=== PATIENT | female | born 1950 | race Caucasian/White ===

== ENCOUNTER 2017-01-25 16:42 | Inpatient (IN) | payer MEDICARE, BC ==
[~2017-01-25] VITALS: Ht 167.6 cm; Wt 114.2 kg
[2017-01-25 17:07] VITALS: BP 166/70; PULSE 110; RESP 20; TEMP 100; O2SAT 96
[2017-01-25 17:33] VITALS: BP 147/67; PULSE 102; RESP 18; TEMP 99.9; O2SAT 98
[2017-01-25] MEDS ORDERED: VICT18IN SQ (17:33)
[2017-01-25] MEDS ORDERED: GLIP5TAB8 PO (17:33)
[2017-01-25] MEDS ORDERED: TELM40 PO (17:33)
--- NOTE | 2017-01-25 17:40 | PD ---
HPI Chief Complaint: GI Complaint Time Seen by Provider: 17:40 Travel History International Travel<30 days: No Contact w/Intl Traveler<30days: No Traveled to known affect area: No History of Present Illness HPI 66-year-old female came to the emergency room with history of vomiting for past 3 days. Now she has started with some diarrhea as well but as per her the vomiting is the worst. She has generalized weakness with continuous nausea. Vital signs are stable except for temperature in triage was 100. Patient has been complaining of chills. Earlier in the week she had some associated dysuria symptoms which patient says now it is better. No history of sick contacts. Patient did a course of antibiotic for bronchitis 2 weeks ago. It was ciprofloxacin. She was also given a 3 day course of steroid which she finished taking earlier this week. Patient is a diabetic and her blood sugar in triage was more than 500. Patient is awake and answering questions appropriately. No aggravating or relieving factors identified. PFSH Past Medical History Narrative Medical List of her past medical, surgical, social and family history is reviewed from the nursing note. Cardiovascular Problems: Yes Diabetes: Yes Patient Takes Glucophage: Yes Diminished Hearing: No Hypertension: Yes Medical other: Yes Tetanus Vaccination: < 5 Years Influenza Vaccination: Yes Menopausal: Yes : 4 Para: 2 Past Surgical History Appendectomy: Yes Section: Yes (X2) Cholecystectomy: Yes Other Surgery: Yes (MELANOMA BACK) Social History Alcohol Use: No Tobacco Use: No Substance Use: No Allergies-Medications (Allergen,Severity, Reaction): Coded Allergies: No Known Allergies (Unverified , 01/25/17) Comments No known drug allergies. Reported Meds & Prescriptions Reported Meds & Active Scripts Active Reported Medrol Dosepak (Methylprednisolone) 4 Mg Dspk 4 Mg PO DIRECTED Per Pharmacist direction Victoza Inj (Liraglutide Inj) 18 Mg/3 Ml Pen 1.2 Mg SQ DAILY Micardis (Telmisartan) 40 Mg Tab 40 Mg PO DAILY Glipizide 5 Mg Tab 5 Mg PO DAILY Take 30 minutes before a meal Narrative Medication List of her home medications reviewed from the nursing note. Review of Systems Except as stated in HPI: all other systems reviewed are Neg Gastrointestinal: Positive: Nausea, Vomiting, Diarrhea Physical Exam Narrative GENERAL: Awake, alert, morbidly obese, moderate distress SKIN: Focused skin assessment warm/dry. HEAD: Atraumatic. Normocephalic. EYES: Pupils equal and round. No scleral icterus. No injection or drainage. ENT: No nasal bleeding or discharge. Mucous membranes pink and moist. NECK: Trachea midline. No JVD. CARDIOVASCULAR: Regular rate and rhythm. No murmur appreciated. RESPIRATORY: No accessory muscle use. Clear to auscultation. Breath sounds equal bilaterally. GASTROINTESTINAL: Abdomen soft, non-tender, nondistended. Hepatic and splenic margins not palpable. MUSCULOSKELETAL: No obvious deformities. No clubbing. No cyanosis. No edema. NEUROLOGICAL: Awake and alert. No obvious cranial nerve deficits. Motor grossly within normal limits. Normal speech. PSYCHIATRIC: Appropriate mood and affect; insight and judgment normal. Data Data Last Documented VS Vital Signs Date Time Temp Pulse Resp B/P (MAP) Pulse Ox O2 Delivery O2 Flow Rate FiO2 01/25/17 23:51 100.3 01/25/17 23:03 90 18 100 Nasal Cannula 2.00 Orders Orders Complete Blood Count With Diff (01/25/17 17:12) Comprehensive Metabolic Panel (01/25/17 17:12) Urinalysis - C+S If Indicated (01/25/17 17:12) Iv Access Insert/Monitor (01/25/17 17:12) Lipase (01/25/17 17:12) Sodium Chlor 0.9% 1000 Ml Inj (Ns 1000 M (01/25/17 18:00) Lactic Acid (01/25/17 17:52) Blood Culture (01/25/17 17:52) ^ Straight Catheter (01/25/17 17:52) Insulin Human Regular Inj (Novolin R Inj (01/25/17 18:00) Piperacil-Tazo 4.5 Gm Premix (Zosyn 4.5 (01/25/17 18:15) Vancomycin Inj (Vancomycin Inj) (01/25/17 18:15) C Diff Toxin Pcr (01/25/17 18:27) Chest, Single Ap (01/25/17 ) Urine Culture (01/25/17 18:10) Admit Order (Ed Use Only) (01/26/17 02:09) Labs Laboratory Tests Test 01/25/17 17:00 01/25/17 18:10 White Blood Count 18.2 TH/MM3 Red Blood Count 4.11 MIL/MM3 Hemoglobin 12.3 GM/DL Hematocrit 36.3 % Mean Corpuscular Volume 88.3 FL Mean Corpuscular Hemoglobin 30.0 PG Mean Corpuscular Hemoglobin Concent 33.9 % Red Cell Distribution Width 12.6 % Platelet Count 166 TH/MM3 Mean Platelet Volume 9.0 FL Neutrophils (%) (Auto) 86.0 % Lymphocytes (%) (Auto) 3.7 % Monocytes (%) (Auto) 10.1 % Eosinophils (%) (Auto) 0.1 % Basophils (%) (Auto) 0.1 % Neutrophils # (Auto) 15.7 TH/MM3 Lymphocytes # (Auto) 0.7 TH/MM3 Monocytes # (Auto) 1.8 TH/MM3 Eosinophils # (Auto) 0.0 TH/MM3 Basophils # (Auto) 0.0 TH/MM3 CBC Comment DIFF FINAL Differential Comment Blood Urea Nitrogen 44 MG/DL Creatinine 2.30 MG/DL Random Glucose 444 MG/DL Total Protein 6.9 GM/DL Albumin 2.6 GM/DL Calcium Level 8.2 MG/DL Alkaline Phosphatase 67 U/L Aspartate Amino Transf (AST/SGOT) 7 U/L Alanine Aminotransferase (ALT/SGPT) 10 U/L Total Bilirubin 1.3 MG/DL Sodium Level 134 MEQ/L Potassium Level 4.2 MEQ/L Chloride Level 99 MEQ/L Carbon Dioxide Level 23.6 MEQ/L Anion Gap 11 MEQ/L Estimat Glomerular Filtration Rate 21 ML/MIN Lipase 133 U/L Urine Color YELLOW Urine Turbidity HAZY Urine pH 5.5 Urine Specific [place] 1.016 Urine Protein 100 mg/dL Urine Glucose (UA) 1000 mg/dL Urine Ketones TRACE mg/dL Urine Occult Blood MOD Urine Nitrite POS Urine Bilirubin NEG Urine Urobilinogen LESS THAN 2.0 MG/DL Urine Leukocyte Esterase LARGE Urine RBC 5 /hpf Urine WBC /hpf Urine WBC Clumps RARE Urine Squamous Epithelial Cells 1 /hpf Urine Amorphous Sediment RARE Urine Bacteria MANY /hpf Urine Mucus FEW /lpf Microscopic Urinalysis Comment CULTURE INDICATED Lactic Acid Level 2.0 mmol/L [facility] Medical Decision Making Medical Screen Exam Complete: Yes Emergency Medical Condition: Yes Medical Record Reviewed: Yes Differential Diagnosis DKA, dehydration, UTI, pneumonia, C. difficile colitis Narrative Course 6:25 PM patient is getting IV fluid total of 2 L of bolus. Repeat blood sugar after 1 L was 402. I have ordered 10 units of insulin subcutaneous as well. Her white blood cell count is 18,000 with a left shift. Due to the unknown source of infection I have started her on Zosyn and vancomycin. Awaiting for the BMP results and UA. Case will be signed over to the oncoming ER physician. Critical Care Narrative Aggregate critical care time was 30 minutes. Time to perform other separately billable procedures was not included in the critical care time. My time did not include minutes spent treating any other patients simultaneously or on activities that did not directly contribute to the patient's treatment. The services I provided to this patient were to treat and/or prevent clinically significant deterioration that could result in: sepsis, sepsis protocol, DKA, fluid resuscitation I provided critical care services requiring my management, as noted below: Chart data review, documentation time, medication orders and management, vital sign assessments/reviewing monitor data, ordering and reviewing lab tests, ordering and interpreting/reviewing x-rays and diagnostic studies, care of the patient and discussion of the patient with the admitting physicians. Procedures EKG Prior to Arrival: No Diagnosis Primary Impression: Sepsis Qualified Codes: A41.9 - Sepsis, unspecified organism Additional Impressions: Hyperglycemia Dehydration Admitting Information Admitting Physician Requests: Madeline Gatica MD Jan 25, 2017 17:40
[2017-01-25] MEDS ORDERED: MEDR4PAK PO (17:48)
[2017-01-25] MEDS ORDERED: INSULIN HUMAN REGULAR 1,000 UNITS/10 ML VIAL SQ ONE (18:00)
[2017-01-25] MEDS ORDERED: SODIUM CHLOR 0.9% 1000 ML INJ 1,000 ML IV ONE (18:00)
[2017-01-25 18:07] LABS: AUTOMATED NEUTROPHIL # 15.7 TH/MM3 (1.8-7.7); BASOPHIL % 0.1 % (0.0-2.0); EOSINOPHIL % 0.1 % (0.0-4.0); HEMATOCRIT 36.3 % (35.0-46.0); HEMO FLAGS DIFF FINAL; LYMPH % 3.7 % (9.0-44.0); LYMPHOCYTE # 0.7 TH/MM3 (1.0-4.8); MEAN CELL VOLUME 88.3 FL (80.0-100.0); MEAN CORPUSCULAR HGB CONC 33.9 % (32.0-36.0); MONO % 10.1 % (0.0-8.0); PLATELET COUNT 166 TH/MM3 (150-450); RED BLOOD COUNT 4.11 MIL/MM3 (4.00-5.30); RED CELL DISTRIBUTION WIDTH 12.6 % (11.6-17.2); WHITE BLOOD COUNT 18.2 TH/MM3 (4.0-11.0)
[2017-01-25] MEDS ORDERED: VANCOMYCIN INJ 1,000 MG in SODIUM CHLOR 0.9% 250 ML INJ 250 ML IV ONE (18:15)
[2017-01-25] MEDS ORDERED: PIPERACIL-TAZO 4.5 GM PREMIX 100 ML IV ONE (18:15)
[2017-01-25 18:29] LABS: ANION GAP 11 MEQ/L (5-15)
[2017-01-25 18:39] LABS: ALKALINE PHOSPHATASE 67 U/L (45-117); ALT (GPT) 10 U/L (10-53); AST (GOT) 7 U/L (15-37); BICARBONATE 23.6 MEQ/L (21.0-32.0); BLOOD UREA NITROGEN 44 MG/DL (7-18); CHLORIDE 99 MEQ/L (98-107); GLOMERULAR FILTRATION RATE 21 ML/MIN (>89); POTASSIUM 4.2 MEQ/L (3.5-5.1); SODIUM (NA) 134 MEQ/L (136-145); TOTAL BILIRUBIN ADULT 1.3 MG/DL (0.2-1.0)
[2017-01-25 19:03] LABS: BACTERIA, URINE MANY /hpf; BLOOD, URINE MOD (NEG); COMMENT (UR) CULTURE INDICATED; CULTURE IF INDICATED CULTURE INDICATED; GLUCOSE,URINE 1000 mg/dL (NEG); KETONE, URINE TRACE mg/dL (NEG); MUCUS URINE FEW /lpf (OCC); NITRITE,URINE POS (NEG); PH, URINE 5.5 (5.0-8.5); SQUAMOUS EPITHELIAL CELL URINE 1 /hpf (0-5); URINE COLOR YELLOW (YELLW/STRAW)
--- NOTE | 2017-01-25 19:58 | RADRPT ---
EXAM DATE/TIME: 01/25/2017 19:14 [place] COMPARISON: No previous studies available for comparison. INDICATIONS : Fever. MEDICAL HISTORY : Hypertension. Diabetes mellitus type II. SURGICAL HISTORY : None. ENCOUNTER: Initial ACUITY: 1 day PAIN SCORE: 0/10 LOCATION: Bilateral chest FINDINGS: A single view of the chest demonstrates the lungs to be symmetrically aerated without evidence of mas s, infiltrate or effusion. The cardiomediastinal contours are unremarkable. Osseous structures are intact. CONCLUSION: No acute disease. Ezequiel Quiñones MD on January 25, 2017 at 19:56 Board Certified Radiologist. This report was verified electronically.
[2017-01-25 20:00] VITALS: BP 109/59; PULSE 101; RESP 20; TEMP 99; O2SAT 98
[2017-01-25 23:03] VITALS: BP 114/61; PULSE 90; RESP 18; O2SAT 100
[2017-01-25 23:51] VITALS: TEMP 100.3
[2017-01-26] VITALS (7 sets, daily range): BP systolic 109–140; BP diastolic 56–69; PULSE 79–101; RESP 16–22; TEMP 98.3–100.7; O2SAT 93–99
--- NOTE | 2017-01-26 01:59 | PD ---
Physical Exam Narrative Patient was seen by ED physician and signed out to me. Data Data Last Documented VS Vital Signs Date Time Temp Pulse Resp B/P (MAP) Pulse Ox O2 Delivery O2 Flow Rate FiO2 01/25/17 23:51 100.3 01/25/17 23:03 90 18 100 Nasal Cannula 2.00 Orders Orders Complete Blood Count With Diff (01/25/17 17:12) Comprehensive Metabolic Panel (01/25/17 17:12) Urinalysis - C+S If Indicated (01/25/17 17:12) Iv Access Insert/Monitor (01/25/17 17:12) Lipase (01/25/17 17:12) Sodium Chlor 0.9% 1000 Ml Inj (Ns 1000 M (01/25/17 18:00) Lactic Acid (01/25/17 17:52) Blood Culture (01/25/17 17:52) ^ Straight Catheter (01/25/17 17:52) Insulin Human Regular Inj (Novolin R Inj (01/25/17 18:00) Piperacil-Tazo 4.5 Gm Premix (Zosyn 4.5 (01/25/17 18:15) Vancomycin Inj (Vancomycin Inj) (01/25/17 18:15) C Diff Toxin Pcr (01/25/17 18:27) Chest, Single Ap (01/25/17 ) Urine Culture (01/25/17 18:10) Labs Laboratory Tests Test 01/25/17 17:00 01/25/17 18:10 White Blood Count 18.2 TH/MM3 Red Blood Count 4.11 MIL/MM3 Hemoglobin 12.3 GM/DL Hematocrit 36.3 % Mean Corpuscular Volume 88.3 FL Mean Corpuscular Hemoglobin 30.0 PG Mean Corpuscular Hemoglobin Concent 33.9 % Red Cell Distribution Width 12.6 % Platelet Count 166 TH/MM3 Mean Platelet Volume 9.0 FL Neutrophils (%) (Auto) 86.0 % Lymphocytes (%) (Auto) 3.7 % Monocytes (%) (Auto) 10.1 % Eosinophils (%) (Auto) 0.1 % Basophils (%) (Auto) 0.1 % Neutrophils # (Auto) 15.7 TH/MM3 Lymphocytes # (Auto) 0.7 TH/MM3 Monocytes # (Auto) 1.8 TH/MM3 Eosinophils # (Auto) 0.0 TH/MM3 Basophils # (Auto) 0.0 TH/MM3 CBC Comment DIFF FINAL Differential Comment Blood Urea Nitrogen 44 MG/DL Creatinine 2.30 MG/DL Random Glucose 444 MG/DL Total Protein 6.9 GM/DL Albumin 2.6 GM/DL Calcium Level 8.2 MG/DL Alkaline Phosphatase 67 U/L Aspartate Amino Transf (AST/SGOT) 7 U/L Alanine Aminotransferase (ALT/SGPT) 10 U/L Total Bilirubin 1.3 MG/DL Sodium Level 134 MEQ/L Potassium Level 4.2 MEQ/L Chloride Level 99 MEQ/L Carbon Dioxide Level 23.6 MEQ/L Anion Gap 11 MEQ/L Estimat Glomerular Filtration Rate 21 ML/MIN Lipase 133 U/L Urine Color YELLOW Urine Turbidity HAZY Urine pH 5.5 Urine Specific [place] 1.016 Urine Protein 100 mg/dL Urine Glucose (UA) 1000 mg/dL Urine Ketones TRACE mg/dL Urine Occult Blood MOD Urine Nitrite POS Urine Bilirubin NEG Urine Urobilinogen LESS THAN 2.0 MG/DL Urine Leukocyte Esterase LARGE Urine RBC 5 /hpf Urine WBC /hpf Urine WBC Clumps RARE Urine Squamous Epithelial Cells 1 /hpf Urine Amorphous Sediment RARE Urine Bacteria MANY /hpf Urine Mucus FEW /lpf Microscopic Urinalysis Comment CULTURE INDICATED Lactic Acid Level 2.0 mmol/L MDM Supervised Visit with KALEIGH: No Interpretation(s) Last Impressions Chest X-Ray 01/25/17 0000 Signed Impressions: Service Date/Time: Wednesday, January 25, 2017 19:14 - CONCLUSION: No acute disease. Ezequiel Quiñones MD 1:53 AM. CBC WBC 18.2. 86 neutrophil. Sodium 134. BUN 44. Creatinine 2.3. GFR 21. Glucose 444. Lactic acid 2.0. Calcium 8.2. Total bili 1.3. UA positive WBC and bacteria. Narrative Course Patient was given vancomycin, Zosyn, Novolin and normal saline solution. Diagnosis Primary Impression: Sepsis Qualified Codes: A41.9 - Sepsis, unspecified organism Additional Impressions: Hyperglycemia Dehydration UTI (urinary tract infection) Qualified Codes: N30.00 - Acute cystitis without hematuria Daryl Barber MD Jan 26, 2017 01:59
[2017-01-26] MEDS ORDERED: DEXTROSE 50% IN WATER 50 ML VIAL(D50) IV PUSH PRN (02:15)
[2017-01-26] MEDS ORDERED: GLUCAGON 1 MG/ML VIAL OTHER PRN (02:15)
[2017-01-26] MEDS ORDERED: NALOXONE HCL 0.4 MG/ML AMP IV PUSH PRN (02:15)
[2017-01-26] MEDS ORDERED: SODIUM CHLORIDE 0.9% FLUSH 10 ML FLUSH IV FLUSH PRN (02:15)
[2017-01-26] MEDS: SODIUM CHLOR 0.9% 1000 ML INJ 1,000 ML IV SCH ×2 (02:29→17:18)
[2017-01-26] MEDS ORDERED: metroNIDAZOLE 500 MG TAB PO SCH (08:00)
[2017-01-26] MEDS: INSULIN ASPART SUPPLEMENTAL SCALE SQ SCH ×4 (08:40→20:45)
[2017-01-26] MEDS: SODIUM CHLORIDE 0.9% FLUSH 10 ML FLUSH IV FLUSH SCH ×2 (08:41→20:46)
[2017-01-26] MEDS: INSULIN DETEMIR 100 UNITS/ML VIAL SQ SCH ×2 (08:45→20:42)
[2017-01-26] MEDS ORDERED: CIPROFLOXACIN 400 MG PREMIX 200 ML IV SCH (09:00)
--- NOTE | 2017-01-26 09:12 | HHI.HP ---
HPI Service [facility] Primary Care Physician Unknown Admission Diagnosis sepsis. UTI. Hyperglycemia. Diagnoses: Chief Complaint: Nausea and vomiting Travel History International Travel<30 Days: No Contact w/Intl Traveler <30 Da: No Traveled to Known Affected Are: No History of Present Illness The patient is a 66-year-old female with a past medical history of diabetes and chronic kidney disease who is presenting to the hospital with nausea, vomiting and diarrhea. The patient says she was feeling fine on Monday. She had a fish sandwich for dinner and then at approximately 2 AM she woke up feeling feverish. She said she was severely cold and had chills. She did not have a thermometer so did not check a temperature. On Monday morning she started vomiting bile. She said that everything she ate or drank would come up. This has been ongoing since Monday. She said she has had generalized weakness since the vomiting started. She has been having a hard time ambulating. She said that because she has not been eating, drinking or feeling well she has missed some of her Victoza injections. She says she started to have diarrhea about 2 days ago. She describes the diarrhea as watery but not bad. She denies any cramps associated with it. She says she has been having about 2 bowel movements a day. She also mentions that her [id number]-krg had the same fish sandwich on Monday night and did not develop any similar symptoms. She mentions recently she had bad bronchitis and was on Cipro for 10 days. The Cipro did not work so she was given steroids. She completed about 3-1/2 days of steroids and she said her bronchitis is currently gone. Review of Systems Except as stated in HPI: all other systems reviewed are Neg Past Family Social History Past Medical History DM CKD stage III s/t NSAID use Melanoma of back s/p surgery Past Surgical History Cholecystectomy C/s x 2 Allergies: Coded Allergies: No Known Allergies (Unverified , 01/25/17) Active Ordered Medications Current Medications Medications (Trade) Dose Ordered Sig/Issa Route Start Time Stop Time Status Last Admin Sodium Chloride 1,000 ml @ 75 mls/hr [id number] IV 01/26/17 02:13 01/26/17 02:29 (NS Flush) 2 ml UNSCH PRN IV FLUSH 01/26/17 02:15 (NS Flush) 2 ml BID IV FLUSH 01/26/17 09:00 (Narcan Inj) 0.4 mg UNSCH PRN IV PUSH 01/26/17 02:15 (D50w (Vial) Inj) 50 ml UNSCH PRN IV PUSH 01/26/17 02:15 (Glucagon Inj) 1 mg UNSCH PRN OTHER 01/26/17 02:15 (NovoLOG SUPPLEMENTAL SCALE) 1 ACHS SLIDING SCALE SQ 01/26/17 08:00 01/26/17 08:40 Ceftriaxone Sodium 1000 mg/ Sodium Chloride 100 ml @ 200 mls/hr Q24H IV 01/26/17 08:45 UNV (Levemir Inj) 20 units HS SQ 01/26/17 08:45 UNV Family History Father passed of lung cancer Mother had carcinoid disease Social History The pt does not smoke. She drinks two margaritas a year. Physical Exam Vital Signs Vital Signs Date Time Temp Pulse Resp B/P (MAP) Pulse Ox O2 Delivery O2 Flow Rate FiO2 01/26/17 08:08 99.0 86 16 109/57 (74) 97 01/26/17 04:19 99.5 101 19 133/69 (90) 93 01/26/17 04:00 01/25/17 23:51 100.3 01/25/17 23:03 90 18 114/61 (78) 100 Nasal Cannula 2.00 01/25/17 20:00 99.0 101 20 109/59 (76) 98 Nasal Cannula 01/25/17 17:33 99.9 102 18 147/67 (93) 98 Room Air 01/25/17 17:26 18 01/25/17 17:07 100.0 110 20 166/70 (102) 96 Physical Exam GENERAL: Resting comfortably. SKIN: Focused skin assessment warm/dry. HEAD: Atraumatic. Normocephalic. EYES: Pupils equal and round. No scleral icterus. No injection or drainage. ENT: No nasal bleeding or discharge. Mucous membranes pink and moist. NECK: Trachea midline. No JVD. CARDIOVASCULAR: Regular rate and rhythm. No murmur appreciated. RESPIRATORY: No accessory muscle use. Clear to auscultation. Breath sounds equal bilaterally. GASTROINTESTINAL: Abdomen soft, non-tender, nondistended. Hepatic and splenic margins not palpable. MUSCULOSKELETAL: No obvious deformities. No clubbing. No cyanosis. No edema. NEUROLOGICAL: Awake and alert. No obvious cranial nerve deficits. Motor grossly within normal limits. Normal speech. PSYCHIATRIC: Appropriate mood and affect; insight and judgment normal. Laboratory Laboratory Tests Test 01/25/17 17:00 01/25/17 18:10 White Blood Count 18.2 Red Blood Count 4.11 Hemoglobin 12.3 Hematocrit 36.3 Mean Corpuscular Volume 88.3 Mean Corpuscular Hemoglobin 30.0 Mean Corpuscular Hemoglobin Concent 33.9 Red Cell Distribution Width 12.6 Platelet Count 166 Mean Platelet Volume 9.0 Neutrophils (%) (Auto) 86.0 Lymphocytes (%) (Auto) 3.7 Monocytes (%) (Auto) 10.1 Eosinophils (%) (Auto) 0.1 Basophils (%) (Auto) 0.1 Neutrophils # (Auto) 15.7 Lymphocytes # (Auto) 0.7 Monocytes # (Auto) 1.8 Eosinophils # (Auto) 0.0 Basophils # (Auto) 0.0 CBC Comment DIFF FINAL Differential Comment Blood Urea Nitrogen 44 Creatinine 2.30 Random Glucose 444 Total Protein 6.9 Albumin 2.6 Calcium Level 8.2 Alkaline Phosphatase 67 Aspartate Amino Transf (AST/SGOT) 7 Alanine Aminotransferase (ALT/SGPT) 10 Total Bilirubin 1.3 Sodium Level 134 Potassium Level 4.2 Chloride Level 99 Carbon Dioxide Level 23.6 Anion Gap 11 Estimat Glomerular Filtration Rate 21 Lipase 133 Urine Color YELLOW Urine Turbidity HAZY Urine pH 5.5 Urine Specific [place] 1.016 Urine Protein 100 Urine Glucose (UA) 1000 Urine Ketones TRACE Urine Occult Blood MOD Urine Nitrite POS Urine Bilirubin NEG Urine Urobilinogen LESS THAN 2.0 Urine Leukocyte Esterase LARGE Urine RBC 5 Urine WBC Urine WBC Clumps RARE Urine Squamous Epithelial Cells 1 Urine Amorphous Sediment RARE Urine Bacteria MANY Urine Mucus FEW Microscopic Urinalysis Comment CULTURE INDICATED Lactic Acid Level 2.0 Date/Time Source Procedure Growth Status 01/25/17 18:10 Blood Peripheral Aerobic Blood Culture Pending Received 01/25/17 18:10 Blood Peripheral Anaerobic Blood Culture Pending Received 01/25/17 18:10 Urine Clean Catch Urine Culture Pending Received Result Diagram: 01/25/17 1700 01/25/17 1700 Imaging Last Impressions Chest X-Ray 01/25/17 0000 Signed Impressions: Service Date/Time: Wednesday, January 25, 2017 19:14 - CONCLUSION: No acute disease. MD Estevan Medina VTE Risk Assessment Estevan VTE Risk Assessment: Mod/High Risk (score >= 2) Caprini Risk Assessment Model Point Value = 1 Point Value = 2 Point Value = 3 Point Value = 5 Age 41-60 Minor surgery BMI > 25 kg/m2 Swollen legs Varicose veins or History of unexplained or recurrent spontaneous Oral contraceptives or hormone replacement Sepsis (< 1 month) Serious lung disease, including pneumonia (< 1 month) Abnormal pulmonary function Acute myocardial infarction Congestive heart failure (< 1 month) History of inflammatory bowel disease Medical patient at bed rest Age 61-74 Arthroscopic surgery Major open surgery (> 45 min) Laparoscopic surgery (> 45 min) Malignancy Confined to bed (> 72 hours) Immobilizing plaster cast Central venous access Age >= 75 History of VTE Family history of VTE Factor V Leiden Prothrombin [id number] Lupus anticoagulant Anticardiolipin antibodies Elevated serum homocysteine Heparin-induced thrombocytopenia Other congenital or acquired thrombophilia Stroke (< 1 month) Elective arthroplasty Hip, pelvis, or leg fracture Acute spinal cord injury (< 1 month) Prophylaxis Regimen Total Risk Factor Score Risk Level Prophylaxis Regimen 0-1 Low Early ambulation 2 Moderate Order ONE of the following: *Sequential Compression Device (SCD) *Heparin 5000 units SQ BID 3-4 Higher Order ONE of the following medications: *Heparin 5000 units SQ TID *Enoxaparin/Lovenox 40 mg SQ daily (WT < 150 kg, CrCl > 30 mL/min) *Enoxaparin/Lovenox 30 mg SQ daily (WT < 150 kg, CrCl > 10-29 mL/min) *Enoxaparin/Lovenox 30 mg SQ BID (WT < 150 kg, CrCl > 30 mL/min) AND/OR *Sequential Compression Device (SCD) 5 or more Highest Order ONE of the following medications: *Heparin 5000 units SQ TID (Preferred with Epidurals) *Enoxaparin/Lovenox 40 mg SQ daily (WT < 150 kg, CrCl > 30 mL/min) *Enoxaparin/Lovenox 30 mg SQ daily (WT < 150 kg, CrCl > 10-29 mL/min) *Enoxaparin/Lovenox 30 mg SQ BID (WT < 150 kg, CrCl > 30 mL/min) AND *Sequential Compression Device (SCD) Assessment and Plan Assessment and Plan Sepsis/ Gastroenteritis/ Dehydration The pt has been having severe nausea and vomiting for days prior to admission. More recently she developed diarrhea. She is currently holding down some food. She denies any abdominal pain. She did have a fish sandwich prior to the onset of symptoms. The patient likely has viral or bacterial gastroenteritis. - Continue supportive care including fluids and antiemetics as needed. - Continue IV ceftriaxone. - stool cultures and C diff PCR pending. - ADAT. DM Poorly controlled. Has missed several doses of Victoza s/t sickness. Glucose over 500 on admission. Anion gap not elevated. - IVFs. - Levemir 20 units daily. - ISS, diabetic diet. - Check a hemoglobin A1c. Generalized weakness S/t above. - PT. - check TSH, vitamin D and B12 levels. UTI UA indicative of infection. She previously had symptoms of a UTI, but not currently. - continue ceftriaxone and follow urine culture. Acute on chronic kidney disease Renal dysfunction is secondary to NSAID use. Exacerbated by dehydration as above. - IV fluids. - Avoid nephrotoxic agents. - Outpatient follow-up. PPx: Heparin Code Status Full Discussed Condition With Patient Physician Certification 2 Midnight Certification Type: Admission for Inpatient Services Order for Inpatient Services The services are ordered in accordance with Medicare regulations or non- Medicare payer requirements, as applicable. In the case of services not specified as inpatient-only, they are appropriately provided as inpatient services in accordance with the 2-midnight benchmark. Estimated LOS (days): 2 days is the estimated time the patient will need to remain in the hospital, assuming treatment plan goals are met and no additional complications. Post-Hospital Plan: Home Hilton Linda DO Jan 26, 2017 09:11
[2017-01-26] MEDS ORDERED: ACETAMINOPHEN/HYDROcodone 325 MG/5 MG TAB PO PRN (09:30)
[2017-01-26] MEDS ORDERED: cefTRIAXone INJ 1,000 MG in SODIUM CHLORIDE 0.9% INJ 100 ML IV SCH (11:00)
[2017-01-26] MEDS: PANTOPRAZOLE SOD 20 MG DELAYED RELEASE TAB PO SCH (13:12)
[2017-01-26] MEDS: HEPARIN SODIUM - SQ 10,000 UNITS/ML VIAL SQ SCH ×2 (13:12→20:42)
[2017-01-26] MEDS: PIPERACIL-TAZO 2.25 GM PREMIX 50 ML IV SCH ×2 (15:53→20:42)
[2017-01-26 16:34] LABS: AUTOMATED NEUTROPHIL # 11.6 TH/MM3 (1.8-7.7); BASOPHIL % 0.2 % (0.0-2.0); EOSINOPHIL # 0.2 TH/MM3 (0-0.4); EOSINOPHIL % 1.2 % (0.0-4.0); HEMATOCRIT 30.8 % (35.0-46.0); HEMO FLAGS DIFF FINAL; LYMPH % 9.3 % (9.0-44.0); LYMPHOCYTE # 1.4 TH/MM3 (1.0-4.8); MEAN CELL VOLUME 87.5 FL (80.0-100.0); MEAN CORPUSCULAR HEMOGLOBIN 29.5 PG (27.0-34.0); MEAN CORPUSCULAR HGB CONC 33.7 % (32.0-36.0); MONO % 11.3 % (0.0-8.0); PLATELET COUNT 156 TH/MM3 (150-450); RED BLOOD COUNT 3.52 MIL/MM3 (4.00-5.30); RED CELL DISTRIBUTION WIDTH 12.9 % (11.6-17.2); WHITE BLOOD COUNT 14.9 TH/MM3 (4.0-11.0)
[2017-01-26 17:04] LABS: ALKALINE PHOSPHATASE 58 U/L (45-117); ALT (GPT) 9 U/L (10-53); ANION GAP 7 MEQ/L (5-15); AST (GOT) 5 U/L (15-37); BICARBONATE 23.9 MEQ/L (21.0-32.0); BLOOD UREA NITROGEN 47 MG/DL (7-18); CHLORIDE 105 MEQ/L (98-107); GLOMERULAR FILTRATION RATE 24 ML/MIN (>89); MAGNESIUM 1.8 MG/DL (1.5-2.5); POTASSIUM 3.5 MEQ/L (3.5-5.1); SODIUM (NA) 136 MEQ/L (136-145); TOTAL BILIRUBIN ADULT 0.6 MG/DL (0.2-1.0)
[2017-01-26 22:07] LABS: HEMOGLOBIN A1a 1.6 %; HEMOGLOBIN A1b 2.4 %; HEMOGLOBIN Ao 79.2 %; HEMOGLOBIN LA1C 3.4 %
[2017-01-27] VITALS (9 sets, daily range): BP systolic 120–150; BP diastolic 56–69; PULSE 78–90; RESP 16–20; TEMP 97.5–99.6; O2SAT 95–97
[2017-01-27] MEDS: PIPERACIL-TAZO 2.25 GM PREMIX 50 ML IV SCH ×4 (02:59→21:00)
[2017-01-27] MEDS: SODIUM CHLOR 0.9% 1000 ML INJ 1,000 ML IV SCH ×2 (04:53→08:32)
[2017-01-27] MEDS: HEPARIN SODIUM - SQ 10,000 UNITS/ML VIAL SQ SCH ×3 (06:05→22:17)
[2017-01-27 07:21] LABS: AUTOMATED NEUTROPHIL # 10.5 TH/MM3 (1.8-7.7); BASOPHIL % 0.2 % (0.0-2.0); EOSINOPHIL # 0.3 TH/MM3 (0-0.4); EOSINOPHIL % 2.1 % (0.0-4.0); HEMATOCRIT 30.4 % (35.0-46.0); HEMO FLAGS DIFF FINAL; LYMPH % 9.8 % (9.0-44.0); LYMPHOCYTE # 1.3 TH/MM3 (1.0-4.8); MEAN CORPUSCULAR HEMOGLOBIN 29.7 PG (27.0-34.0); MEAN CORPUSCULAR HGB CONC 34.2 % (32.0-36.0); MONO % 10.2 % (0.0-8.0); NEUT % 77.7 % (16.0-70.0); PLATELET COUNT 175 TH/MM3 (150-450); RED BLOOD COUNT 3.49 MIL/MM3 (4.00-5.30); RED CELL DISTRIBUTION WIDTH 12.8 % (11.6-17.2); WHITE BLOOD COUNT 13.5 TH/MM3 (4.0-11.0)
[2017-01-27] MEDS ORDERED: POTASSIUM PHOSPHATE INJ 15 MMOL in SODIUM CHLORIDE 0.9% INJ 150 ML IV ONE (08:00)
[2017-01-27] MEDS: PANTOPRAZOLE SOD 20 MG DELAYED RELEASE TAB PO SCH (08:31)
[2017-01-27] MEDS: CALCIUM CARBONATE 500 MG CHEWABLE TAB CHEW SCH ×2 (08:31→22:17)
[2017-01-27 08:39] LABS: POTASSIUM 3.7 MEQ/L (3.5-5.1)
[2017-01-27 08:40] LABS: BICARBONATE 22.4 MEQ/L (21.0-32.0)
[2017-01-27] MEDS: INSULIN ASPART SUPPLEMENTAL SCALE SQ SCH ×4 (08:50→21:00)
--- NOTE | 2017-01-27 11:40 | PD.ID.CON ---
History of Present Illness Service ID Consult Requested By Reason for Consult Evaluation and Mment of Sepsis, E.coli bacteremia and UTI Primary Care Physician Unknown Diagnoses: History of Present Illness is a 66 y/o CF with a PMHx of diabetes,CKD, H/o renal stones prior lithotripsy cannot provide me details, Sepsis secondary to E.coli who presented to the hospital with nausea, vomiting and diarrhea. She had a fish sandwich for dinner and then at approximately 2 AM she woke up feeling feverish. She said she was severely cold and had chills, subjective fevers. On Monday morning she started vomiting bile. She said that everything she ate or drank would come up. This has been ongoing since Monday. She said she has had generalized weakness since the vomiting started. She has been having a hard time ambulating. She said that because she has not been eating, drinking or feeling well she has missed some of her Victoza injections. She says she started to have diarrhea about 2 days ago. She describes the diarrhea as watery but not bad. She denies any cramps associated with it. She says she has been having about 2 bowel movements a day. She mentions recently she had bad bronchitis and was on Cipro for 10 days. The Cipro did not work so she was given steroids. She completed about 3-1/2 days of steroids and she said her bronchitis is currently gone. No other sick contacts. Other family members that ate same food are doing ok not sick. Has seen a urologist in the past. ID was consulted for evaluation and Mment of Sepsis, E.coli bacteremia and UTI. Review of Systems Constitutional: COMPLAINS OF: Fever, Chills, DENIES: Diaphoretic episodes, Fatigue, Weight gain, Weight loss, Dizziness, Change in appetite, Night Sweats Endocrine: DENIES: Abnorml menstrual pattern, Heat/cold intolerance, Polydipsia , Polyuria, Polyphagia Eyes: DENIES: Blurred vision, Diplopia, Eye inflammation, Eye pain, Vision loss , Photosensitivity, Double Vision Ears, nose, mouth, throat: DENIES: Tinnitus, Hearing loss, Vertigo, Nasal discharge, Oral lesions, Throat pain, Hoarseness, Ear Pain, Running Nose, Epistaxis, Sinus Pain, Toothache, Odynophagia Respiratory: DENIES: Apneas, Cough, Snoring, Wheezing, Hemoptysis, Sputum production, Shortness of breath Cardiovascular: DENIES: Chest pain, Palpitations, Syncope, Dyspnea on Exertion , PND, Lower Extremity Edema, Orthopnea, Claudication Gastrointestinal: DENIES: Abdominal pain, Black stools, Bloody stools, Constipation, Diarrhea, Nausea, Vomiting, Difficulty Swallowing, Anorexia Genitourinary: COMPLAINS OF: Urinary frequency, DENIES: Abnormal vaginal bleeding, Dysmenorrhea, Dyspareunia, Sexual dysfunction, Urinary incontinence, Urgency, Hematuria, Dysuria, Nocturia, Vaginal discharge Musculoskeletal: DENIES: Joint pain, Muscle aches, Stiffness, Joint Swelling, Back pain, Neck pain Integumentary: DENIES: Abnormal pigmentation, Pruritus, Rash, Nail changes, Breast masses, Breast skin changes, Nipple discharge Hematologic/lymphatic: DENIES: Bruising, Lymphadenopathy Immunologic/allergic: DENIES: Eczema, Urticaria Neurologic: DENIES: Abnormal gait, Headache, Localized weakness, Paresthesias, Seizures, Speech Problems, Tremor, Poor Balance Psychiatric: DENIES: Anxiety, Confusion, Mood changes, Depression, Hallucinations, Agitation, Suicidal Ideation, Homicidal Ideation, Delusions Except as stated in HPI: all other systems reviewed are Neg Past Family Social History Allergies: Coded Allergies: No Known Allergies (Unverified , 01/25/17) Past Medical History DM CKD stage III s/t NSAID use Melanoma of back s/p surgery Past Surgical History Cholecystectomy C/s x 2 Reported Medications I attest I obtained, reviewed or updated home meds and current meds. Would like to add patient reported to me she was on Cipro in recent past for URTI. Reported Meds & Active Scripts Active Reported Medrol Dosepak (Methylprednisolone) 4 Mg Dspk 4 Mg PO DIRECTED Per Pharmacist direction Victoza Inj (Liraglutide Inj) 18 Mg/3 Ml Pen 1.2 Mg SQ DAILY Micardis (Telmisartan) 40 Mg Tab 40 Mg PO DAILY Glipizide 5 Mg Tab 5 Mg PO DAILY Take 30 minutes before a meal Active Ordered Medications Current Medications Medications (Trade) Dose Ordered Sig/Issa Route Start Time Stop Time Status Last Admin Sodium Chloride 1,000 ml @ 75 mls/hr [id number] IV 01/26/17 02:13 01/27/17 08:32 (NS Flush) 2 ml UNSCH PRN IV FLUSH 01/26/17 02:15 (NS Flush) 2 ml BID IV FLUSH 01/26/17 09:00 01/26/17 20:46 (Narcan Inj) 0.4 mg UNSCH PRN IV PUSH 01/26/17 02:15 (D50w (Vial) Inj) 50 ml UNSCH PRN IV PUSH 01/26/17 02:15 (Glucagon Inj) 1 mg UNSCH PRN OTHER 01/26/17 02:15 (NovoLOG SUPPLEMENTAL SCALE) 1 ACHS SLIDING SCALE SQ 01/26/17 08:00 01/27/17 08:50 (Levemir Inj) 20 units HS SQ 01/26/17 08:45 01/26/17 20:42 ([place] 5-325 Mg) 1 tab Q4H PRN PO 01/26/17 09:30 01/26/17 20:55 ([place] 10-325 Mg) 1 tab Q4H PRN PO 01/26/17 09:30 (Heparin Inj) 5,000 units Q8HR SQ 01/26/17 14:00 01/27/17 06:05 (Protonix) 20 mg DAILY PO 01/26/17 11:30 01/27/17 08:31 Piperacillin Sod/ Tazobactam Sod 50 ml @ 100 mls/hr Q6H IV 01/26/17 15:00 01/27/17 02:59 Potassium Phosphate 15 mmol/ Sodium Chloride 155 ml @ 38.75 mls/ hr ONCE ONCE IV 01/27/17 08:00 01/27/17 11:59 01/27/17 08:32 (Tums Chew) 500 mg Q12HR CHEW 01/27/17 09:00 01/27/17 08:31 Family History reviewed and NC to current ID problems. Social History No alcohol No smoking No illicit drugs. Lives in [place], [place]. They have a condo in [place] where they have been visiting this week Physical Exam Vital Signs Vital Signs Date Time Temp Pulse Resp B/P (MAP) Pulse Ox O2 Delivery O2 Flow Rate FiO2 01/27/17 11:24 98.8 82 19 136/61 (86) 95 01/27/17 07:21 99.6 85 18 128/63 (84) 95 01/27/17 04:00 84 01/27/17 03:37 97.5 90 18 120/56 (77) 97 01/27/17 00:00 78 01/26/17 23:28 99.2 79 18 122/60 (80) 99 01/26/17 20:12 99.4 92 18 120/56 (77) 96 01/26/17 20:02 90 01/26/17 15:13 100.7 89 22 140/60 (86) 96 01/26/17 11:53 98.3 86 18 126/60 (82) 96 Physical Exam GENERAL: Obese, well-developed patient, in no apparent distress. SKIN: No rashes, ecchymoses or lesions. Cool and dry. HEAD: Atraumatic. Normocephalic. No temporal or scalp tenderness. EYES: Pupils equal round and reactive. Extraocular motions intact. No scleral icterus. No injection or drainage. ENT: Nose without bleeding, purulent drainage or septal hematoma. Throat without erythema, tonsillar hypertrophy or exudate. Uvula midline. Airway patent. NECK: Trachea midline. Supple, nontender, no meningeal signs. CARDIOVASCULAR: Regular rate and rhythm without murmurs. RESPIRATORY: Clear to auscultation. Breath sounds equal bilaterally. GASTROINTESTINAL: Abdomen soft, non-tender, nondistended. Obese. MUSCULOSKELETAL: Extremities without clubbing, cyanosis, or edema. No joint tenderness, effusion, or edema noted. No calf tenderness. Negative Homans sign bilaterally. NEUROLOGICAL: Awake and alert. Cranial nerves II through XII intact. Motor and sensory grossly within normal limits. Five out of 5 muscle strength in all muscle groups. Normal speech. Psych cooperative IV line sites with no e.o infection. Laboratory Laboratory Tests Test 01/26/17 16:00 01/27/17 06:02 White Blood Count 14.9 13.5 Red Blood Count 3.52 3.49 Hemoglobin 10.4 10.4 Hematocrit 30.8 30.4 Mean Corpuscular Volume 87.5 87.0 Mean Corpuscular Hemoglobin 29.5 29.7 Mean Corpuscular Hemoglobin Concent 33.7 34.2 Red Cell Distribution Width 12.9 12.8 Platelet Count 156 175 Mean Platelet Volume 8.5 8.9 Neutrophils (%) (Auto) 78.0 77.7 Lymphocytes (%) (Auto) 9.3 9.8 Monocytes (%) (Auto) 11.3 10.2 Eosinophils (%) (Auto) 1.2 2.1 Basophils (%) (Auto) 0.2 0.2 Neutrophils # (Auto) 11.6 10.5 Lymphocytes # (Auto) 1.4 1.3 Monocytes # (Auto) 1.7 1.4 Eosinophils # (Auto) 0.2 0.3 Basophils # (Auto) 0.0 0.0 CBC Comment DIFF FINAL DIFF FINAL Differential Comment Blood Urea Nitrogen 47 37 Creatinine 2.05 1.74 Random Glucose 261 180 Total Protein 5.8 Albumin 2.0 Calcium Level 7.3 7.6 Phosphorus Level 1.5 Magnesium Level 1.8 Alkaline Phosphatase 58 Aspartate Amino Transf (AST/SGOT) 5 Alanine Aminotransferase (ALT/SGPT) 9 Total Bilirubin 0.6 Sodium Level 136 139 Potassium Level 3.5 3.7 Chloride Level 105 107 Carbon Dioxide Level 23.9 22.4 Anion Gap 7 10 Estimat Glomerular Filtration Rate 24 29 Hemoglobin A1c 7.6 Protein Corrected Calcium 8.0 Vitamin B12 Level 350 25-Hydroxy Vitamin D Total 12.8 Thyroid Stimulating Hormone 3rd Gen 0.407 Date/Time Source Procedure Growth Status 01/25/17 18:10 Blood Peripheral Aerobic Blood Culture - Preliminary Escherichia Coli Resulted 01/25/17 18:10 Anaerobic Blood Culture - Preliminary Escherichia Coli Resulted 01/25/17 18:10 Urine Clean Catch Urine Culture - Final Escherichia Coli Complete Result Diagram: 01/27/17 0602 01/27/17 0602 Imaging Last Impressions Chest X-Ray 01/25/17 0000 Signed Impressions: Service Date/Time: Wednesday, January 25, 2017 19:14 - CONCLUSION: No acute disease. Ezequiel Quiñones MD Assessment and Plan Assessment and Plan Sepsis present on admission E.coli bacteremia E.coli UTI ? complicated. Prior h/o renal stones. Reports h/o flank pain off and on for last 4 weeks. DM uncontrolled on admission. CKD Recs: Continue Zosyn IV Repeat blood cultures x 2 US KUB (look for stones or hydronephrosis) May need CT when kidney function improved. Follow cultures Follow clinically. If transient bacteremia may be switched to Levaquin. If not transient or other findings on US or CT will need Urology workup. I will be OOT from 01/28/17 to 02/05/17. Other ID MDs covering for me. Beatrice Mac MD Jan 27, 2017 11:40
[2017-01-27] MEDS: SODIUM CHLORIDE 0.9% FLUSH 10 ML FLUSH IV FLUSH SCH ×2 (12:14→22:20)
--- NOTE | 2017-01-27 14:06 | HHI.PR ---
Subjective Remarks Follow-up for urosepsis. The patient is doing better today. Nausea has improved and she was able to tolerate some of her lunch. No bowel movement since admission. She denies any dysuria or urinary frequency. She has had sepsis from a kidney stone before, does recall that she had some back discomfort a few weeks ago and thinks she might have another kidney stone. She had some subjective chills and sweating overnight. Objective Vitals Vital Signs Date Time Temp Pulse Resp B/P (MAP) Pulse Ox O2 Delivery O2 Flow Rate FiO2 01/27/17 11:24 98.8 82 19 136/61 (86) 95 01/27/17 07:21 99.6 85 18 128/63 (84) 95 01/27/17 04:00 84 01/27/17 03:37 97.5 90 18 120/56 (77) 97 01/27/17 00:00 78 01/26/17 23:28 99.2 79 18 122/60 (80) 99 01/26/17 20:12 99.4 92 18 120/56 (77) 96 01/26/17 20:02 90 01/26/17 15:13 100.7 89 22 140/60 (86) 96 I/O 01/26/17 01/26/17 01/26/17 01/27/17 01/27/17 01/27/17 07:00 15:00 23:00 07:00 15:00 23:00 Intake Total 320 ml 1200 ml Balance 320 ml 1200 ml Intake Oral 100 ml IV Total 220 ml 1200 ml Result Diagram: 01/27/17 0602 01/27/17 0602 Imaging Last Impressions Chest X-Ray 01/25/17 0000 Signed Impressions: Service Date/Time: Wednesday, January 25, 2017 19:14 - CONCLUSION: No acute disease. Ezequiel Quiñones MD Objective Remarks GENERAL: Well-developed well-nourished. Obese. In no acute distress. SKIN: Warm and dry. No lesions noted. HEENT: Normocephalic. Pupils equal and round. Mucous membranes pink and moist. CARDIOVASCULAR: Regular rate and rhythm. No murmur appreciated. RESPIRATORY: No accessory muscle use. Clear to auscultation. Breath sounds equal bilaterally. GASTROINTESTINAL: Abdomen soft, non-tender, nondistended. Bowel sounds x4. MUSCULOSKELETAL: No obvious deformities. No clubbing or cyanosis. No edema. NEUROLOGICAL: Awake and alert. No focal neurological deficits. Moves upper and lower extremities spontaneously. Normal speech. PSYCHIATRIC: Appropriate mood and affect; insight and judgment normal. A/P Assessment and Plan 66-year-old female with a past medical history of diabetes and chronic kidney disease who presented to the hospital with nausea, vomiting and diarrhea Sepsis secondary to Escherichia coli UTI and bacteremia UA with evidence of UTI. On admission low-grade fever, tachycardia, and leukocytosis which are all improving. - Initial blood cultures positive for Escherichia coli, sensitivity pending. Repeat cultures pending. - Urine culture positive for Escherichia coli resistant to Cipro and tetracycline. - Consulted, continue Zosyn for now and check renal ultrasound Gastroenteritis/ Dehydration The pt had been having severe nausea and vomiting for days prior to admission. More recently she developed diarrhea which has resolved. She is currently tolerating oral intake. No abdominal pain. She did have a fish sandwich prior to the onset of symptoms. The patient likely has viral or bacterial gastroenteritis. - Continue supportive care including fluids and antiemetics as needed. - stool cultures and C diff PCR ordered - Diet as tolerated DM Poorly controlled. Missed several doses of Victoza s/t sickness. Glucose over 500 on admission. Anion gap not elevated. Hemoglobin A1c 7.6. Blood glucose is improving. - IVFs. - Levemir 20 units daily. - ISS, diabetic diet. Generalized weakness S/t above. TSH and B12 within normal limits. Vitamin D low. - PT. - Start vitamin D supplementation Acute kidney injury: Creatinine 2.3 admission, no previous labs for comparison. Creatinine is starting to trend down. Likely secondary to ATN from sepsis. - IV fluids. - Avoid nephrotoxic agents. Electrolyte derangement: Calcium and phosphorus low. - Replace electrolytes as indicated - continue to monitor PPx: Heparin Discharge Planning Follow up blood cultures and ID recommendations. Yair uGtierrez Jan 27, 2017 14:06
--- NOTE | 2017-01-27 14:54 | RADRPT ---
EXAM DATE/TIME: 01/27/2017 14:09 [facility] COMPARISON: No previous studies available for comparison. INDICATIONS : Hydronephrosis. MEDICAL HISTORY : Hypertension. Urinary tract infection. Melanoma. Diabetes. Kidney stones. SURGICAL HISTORY : Appendectomy. section. Cholecystectomy. ENCOUNTER: Initial ACUITY: 1 day PAIN SCORE: 2/10 LOCATION: Bilateral flank MEASUREMENTS: RIGHT KIDNEY: 12.9 x 5.2 x 6.3 cm LEFT KIDNEY: 11.0 x 4.9 x 5.8 cm FINDINGS: Ultrasound of the kidneys demonstrate normal size shape and echogenicity. No hydronephrosis or mass l esions are identified. There are simple cysts on the right the largest measuring 1.3 cm. There is a t race of perinephric fluid bilaterally. CONCLUSION: 1. No evidence of obstruction. Trace perinephric fluid bilaterally Pro Bishop MD on January 27, 2017 at 14:51 Board Certified Radiologist. This report was verified electronically.
[2017-01-27 21:28] LABS: C. DIFF EPI 027 PRESUMPTIVE NEGATIVE (NEGATIVE)
[2017-01-27] MEDS: INSULIN DETEMIR 100 UNITS/ML VIAL SQ SCH (22:20)
[2017-01-28 00:42] VITALS: BP 146/65; PULSE 82; RESP 16; TEMP 98.4; O2SAT 96
[2017-01-28 04:27] VITALS: BP 121/69; PULSE 78; RESP 16; TEMP 98.6; O2SAT 96
[2017-01-28] MEDS: PIPERACIL-TAZO 2.25 GM PREMIX 50 ML IV SCH ×4 (04:46→22:57)
[2017-01-28] MEDS: HEPARIN SODIUM - SQ 10,000 UNITS/ML VIAL SQ SCH ×3 (06:09→21:36)
[2017-01-28] MEDS: SODIUM CHLOR 0.9% 1000 ML INJ 1,000 ML IV SCH ×2 (06:09→20:53)
[2017-01-28 08:00] VITALS: BP 157/72; PULSE 79; RESP 20; TEMP 98.9; O2SAT 97
[2017-01-28] MEDS: INSULIN ASPART SUPPLEMENTAL SCALE SQ SCH ×4 (08:00→21:00)
[2017-01-28 08:20] LABS: AUTOMATED NEUTROPHIL # 7.8 TH/MM3 (1.8-7.7); BASOPHIL # 0.1 TH/MM3 (0-0.2); BASOPHIL % 0.6 % (0.0-2.0); EOSINOPHIL # 0.4 TH/MM3 (0-0.4); EOSINOPHIL % 3.6 % (0.0-4.0); HEMATOCRIT 31.2 % (35.0-46.0); HEMO FLAGS DIFF FINAL; LYMPH % 15.9 % (9.0-44.0); LYMPHOCYTE # 1.9 TH/MM3 (1.0-4.8); MEAN CELL VOLUME 86.7 FL (80.0-100.0); MEAN CORPUSCULAR HEMOGLOBIN 29.6 PG (27.0-34.0); MEAN CORPUSCULAR HGB CONC 34.1 % (32.0-36.0); MONO % 13.3 % (0.0-8.0); NEUT % 66.6 % (16.0-70.0); PLATELET COUNT 195 TH/MM3 (150-450); RED BLOOD COUNT 3.59 MIL/MM3 (4.00-5.30); WHITE BLOOD COUNT 11.7 TH/MM3 (4.0-11.0)
[2017-01-28] MEDS: CALCIUM CARBONATE 500 MG CHEWABLE TAB CHEW SCH ×2 (08:47→21:36)
[2017-01-28] MEDS: PANTOPRAZOLE SOD 20 MG DELAYED RELEASE TAB PO SCH (08:47)
[2017-01-28] MEDS: CHOLECALCIFEROL (VIT D3) 5000 UNIT CAP PO SCH (08:47)
[2017-01-28] MEDS: SODIUM CHLORIDE 0.9% FLUSH 10 ML FLUSH IV FLUSH SCH ×2 (08:54→22:58)
[2017-01-28 08:59] LABS: BICARBONATE 22.5 MEQ/L (21.0-32.0); POTASSIUM 3.6 MEQ/L (3.5-5.1)
[2017-01-28 12:00] VITALS: BP 143/65; PULSE 77; RESP 20; TEMP 97.4; O2SAT 92
[2017-01-28] MEDS ORDERED: RESP: ALBUTEROL 0.63 MG/3 ML NEB (PRN) NEB (13:15)
--- NOTE | 2017-01-28 13:24 | HHI.PR ---
Subjective Remarks Follow-up for sepsis and bacteremia. The patient is doing well this time. She states that she had a rough night and had some whistling/wheezing in her throat with some problems breathing. She denies any shortness of breath at this time. She just got over a recent bout of bronchitis that was treated with steroids. She denies any cough. She had some sweating last night. She doesn't want any more steroids due to hyperglycemia. She is tolerating oral intake. She reports a normal bowel movement. She states she has chronic kidney disease at baseline with a normal GFR between 43 and 49. Objective Vitals Vital Signs Date Time Temp Pulse Resp B/P (MAP) Pulse Ox O2 Delivery O2 Flow Rate FiO2 01/28/17 08:00 98.9 79 20 157/72 (100) 97 01/28/17 04:27 98.6 78 16 121/69 (86) 96 01/28/17 00:42 98.4 82 16 146/65 (92) 96 01/27/17 20:08 98.9 88 16 150/69 (96) 97 01/27/17 20:00 84 01/27/17 19:20 Room Air 01/27/17 15:26 98.8 82 20 124/65 (84) 97 I/O 01/27/17 01/27/17 01/27/17 01/28/17 01/28/17 01/28/17 07:00 15:00 23:00 07:00 15:00 23:00 Intake Total 1200 ml 1800 ml 620 ml Output Total 800 ml 1000 ml Balance 1200 ml 1000 ml -380 ml Intake Oral 850 ml 570 ml IV Total 1200 ml 950 ml 50 ml Output Urine Total 800 ml 1000 ml # Voids 4 # Bowel Movements 1 0 Result Diagram: 01/28/17 0735 01/28/17 0735 Imaging Last Impressions Renal Ultrasound 01/27/17 0000 Signed Impressions: Service Date/Time: Friday, January 27, 2017 14:09 - CONCLUSION: 1. No evidence of obstruction. Trace perinephric fluid bilaterally Pro Bishop MD Chest X-Ray 01/25/17 0000 Signed Impressions: Service Date/Time: Wednesday, January 25, 2017 19:14 - CONCLUSION: No acute disease. Ezequiel Quiñones MD Objective Remarks GENERAL: Well-developed well-nourished. Obese. In no acute distress. SKIN: Warm and dry. No lesions noted. HEENT: Normocephalic. Pupils equal and round. Mucous membranes pink and moist. Oropharynx clear with no erythema or edema. No anterior cervical lymphadenopathy. CARDIOVASCULAR: Regular rate and rhythm. No murmur appreciated. RESPIRATORY: No accessory muscle use. Clear to auscultation. Breath sounds equal bilaterally. GASTROINTESTINAL: Abdomen soft, non-tender, nondistended. Bowel sounds x4. MUSCULOSKELETAL: No obvious deformities. No clubbing or cyanosis. No edema. NEUROLOGICAL: Awake and alert. No focal neurological deficits. Moves upper and lower extremities spontaneously. Normal speech. PSYCHIATRIC: Appropriate mood and affect; insight and judgment normal. A/P Assessment and Plan 66-year-old female with a past medical history of diabetes and chronic kidney disease who presented to the hospital with nausea, vomiting and diarrhea Sepsis secondary to Escherichia coli UTI and bacteremia UA with evidence of UTI. On admission low-grade fever, tachycardia, and leukocytosis which are all improving. - Initial blood cultures positive for Escherichia coli resistant to Levaquin and tetracycline. Repeat cultures with NGTD. - Urine culture positive for Escherichia coli resistant to Cipro and tetracycline. - Consulted ID, D/W Dr. Mac, continue Zosyn for now pending cultures - Checked renal ultrasound showed no evidence of obstruction with trace perinephric fluid bilaterally. Gastroenteritis/ Dehydration The pt had been having severe nausea and vomiting for days prior to admission. More recently she developed diarrhea which has resolved. She is currently tolerating oral intake. No abdominal pain. She did have a fish sandwich prior to the onset of symptoms. The patient likely has viral or bacterial gastroenteritis. - Continue supportive care including fluids and antiemetics as needed. - stool cultures and C diff PCR ordered, however stools have normalized - Diet as tolerated DM Poorly controlled. Missed several doses of Victoza s/t sickness. Glucose over 500 on admission. Anion gap not elevated. Hemoglobin A1c 7.6. Blood glucoses improving. - IVFs. - Levemir 20 units daily. - ISS, diabetic diet. Generalized weakness S/t above. TSH and B12 within normal limits. Vitamin D low. - PT. - Started vitamin D supplementation Acute kidney injury on chronic kidney disease: Reports normal GFR of 43-49. Creatinine 2.3 and GFR 21 at admission. Creatinine has trended down. Likely secondary to ATN from sepsis. - IV fluids. - Avoid nephrotoxic agents. - Monitor BMP Electrolyte derangement: Calcium and phosphorus low. - Replace electrolytes as indicated - continue to monitor URI: Complains of upper respiratory wheezing. Lungs clear on exam and chest x- ray is clear. Satting well on room air. - Supportive care with antihistamine and nebs zyras needed PPx: Heparin Discharge Planning Follow up blood cultures and ID recommendations. Yair Gutierrez Jan 28, 2017 13:24
[2017-01-28 16:00] VITALS: BP 152/67; PULSE 80; RESP 20; TEMP 98.8; O2SAT 99
[2017-01-28] MEDS: CETIRIZINE HCL 10 MG TAB PO SCH (17:01)
[2017-01-28 20:00] VITALS: BP 113/52; PULSE 82; PULSE 86; RESP 20; TEMP 97.9; O2SAT 97
[2017-01-28] MEDS: INSULIN DETEMIR 100 UNITS/ML VIAL SQ SCH (21:35)
[2017-01-29] VITALS (7 sets, daily range): BP systolic 119–196; BP diastolic 58–84; PULSE 78–89; RESP 18–21; TEMP 97.5–98.9; O2SAT 94–99
[2017-01-29] MEDS: PIPERACIL-TAZO 2.25 GM PREMIX 50 ML IV SCH ×3 (03:47→13:42)
[2017-01-29] MEDS: SODIUM CHLOR 0.9% 1000 ML INJ 1,000 ML IV SCH ×2 (04:10→08:45)
[2017-01-29] MEDS: HEPARIN SODIUM - SQ 10,000 UNITS/ML VIAL SQ SCH ×3 (05:44→21:09)
[2017-01-29] MEDS: INSULIN ASPART SUPPLEMENTAL SCALE SQ SCH ×4 (08:00→21:00)
[2017-01-29 08:01] LABS: HEMATOCRIT 28.9 % (35.0-46.0); MEAN CELL VOLUME 85.7 FL (80.0-100.0); MEAN CORPUSCULAR HEMOGLOBIN 29.4 PG (27.0-34.0); MEAN CORPUSCULAR HGB CONC 34.2 % (32.0-36.0); PLATELET COUNT 213 TH/MM3 (150-450); RED BLOOD COUNT 3.37 MIL/MM3 (4.00-5.30); RED CELL DISTRIBUTION WIDTH 12.8 % (11.6-17.2); REVIEW FLAG FINAL; WHITE BLOOD COUNT 11.3 TH/MM3 (4.0-11.0)
[2017-01-29 08:16] LABS: BICARBONATE 24.4 MEQ/L (21.0-32.0); MAGNESIUM 1.6 MG/DL (1.5-2.5); POTASSIUM 3.5 MEQ/L (3.5-5.1)
[2017-01-29] MEDS: CALCIUM CARBONATE 500 MG CHEWABLE TAB CHEW SCH ×2 (08:42→21:03)
[2017-01-29] MEDS: ACETAMINOPHEN/HYDROcodone 325 MG/10 MG TAB PO PRN (08:43)
[2017-01-29] MEDS: CHOLECALCIFEROL (VIT D3) 5000 UNIT CAP PO SCH (08:44)
[2017-01-29] MEDS: CETIRIZINE HCL 10 MG TAB PO SCH (08:44)
[2017-01-29] MEDS: PANTOPRAZOLE SOD 20 MG DELAYED RELEASE TAB PO SCH (08:44)
[2017-01-29] MEDS: SODIUM CHLORIDE 0.9% FLUSH 10 ML FLUSH IV FLUSH SCH ×2 (09:00→21:00)
--- NOTE | 2017-01-29 14:45 | HHI.IDPN ---
Note Infectious Disease Note ID coverage. Patient notes sweats. No chills Afebrile. Presented to the hospital with nausea, vomiting and diarrhea. She had a fish sandwich for dinner and then at approximately 2 AM she woke up feeling feverish. She said she was severely cold and had chills, subjective fevers. On Monday morning she started vomiting bile. She said that everything she ate or drank would come up. Past Family Social History Allergies: Coded Allergies: No Known Allergies (Unverified , 01/25/17) Past Medical History DM CKD stage III s/t NSAID use Melanoma of back s/p surgery Past Surgical History Cholecystectomy C/s x 2 Current Medications Medications (Trade) Dose Ordered Sig/Issa Route PRN Reason Start Time Stop Time Status Last Admin Dose Admin Sodium Chloride 1,000 ml @ 75 mls/hr [id number] IV 01/26/17 02:13 01/29/17 08:45 Sodium Chloride (NS Flush) 2 ml UNSCH PRN IV FLUSH FLUSH AFTER USING IV ACCESS 01/26/17 02:15 Sodium Chloride (NS Flush) 2 ml BID IV FLUSH 01/26/17 09:00 01/29/17 09:00 Naloxone HCl (Narcan Inj) 0.4 mg UNSCH PRN IV PUSH SEE LABEL COMMENTS 01/26/17 02:15 Dextrose (D50w (Vial) Inj) 50 ml UNSCH PRN IV PUSH HYPOGLYCEMIA-SEE COMMENTS 01/26/17 02:15 Glucagon (Glucagon Inj) 1 mg UNSCH PRN OTHER HYPOGLYCEMIA-SEE COMMENTS 01/26/17 02:15 Insulin Aspart (NovoLOG SUPPLEMENTAL SCALE) 1 ACHS SLIDING SCALE SQ 01/26/17 08:00 01/29/17 11:30 Insulin Detemir (Levemir Inj) 20 units HS SQ 01/26/17 08:45 01/28/17 21:35 Acetaminophen/ Hydrocodone Bitart (Haskell 5-325 Mg) 1 tab Q4H PRN PO pain 1-5 01/26/17 09:30 01/26/17 20:55 Acetaminophen/ Hydrocodone Bitart (Haskell 10-325 Mg) 1 tab Q4H PRN PO pain 6-10 01/26/17 09:30 01/29/17 08:43 Heparin Sodium (Porcine) (Heparin Inj) 5,000 units Q8HR SQ 01/26/17 14:00 01/29/17 13:43 Pantoprazole Sodium (Protonix) 20 mg DAILY PO 01/26/17 11:30 01/29/17 08:44 Piperacillin Sod/ Tazobactam Sod 50 ml @ 100 mls/hr Q6H IV 01/26/17 15:00 01/29/17 13:42 Calcium Carbonate (Tums Chew) 500 mg Q12HR CHEW 01/27/17 09:00 01/29/17 08:42 Cholecalciferol (Vitamin D3) 5,000 units DAILY PO 01/28/17 09:00 01/29/17 08:44 Albuterol Sulfate (Albuterol Neb) 0.63 mg Q4HR NEB PRN NEB SOB/WHEEZING 01/28/17 13:15 Cetirizine HCl (ZyrTEC) 10 mg DAILY PO 01/28/17 13:30 01/29/17 08:44 Family History reviewed and NC to current ID problems. Social History No alcohol No smoking No illicit drugs. Lives in [place], [place]. They have a condo in [place] where they have been visiting this week OBJECTIVE: Vital Signs Date Time Temp Pulse Resp B/P (MAP) Pulse Ox O2 Delivery O2 Flow Rate FiO2 01/29/17 12:00 98.6 82 20 132/62 (85) 98 01/29/17 09:43 20 01/29/17 08:00 98.9 78 20 169/73 (105) 94 01/29/17 07:00 Room Air 01/29/17 04:00 97.5 79 18 119/59 (79) 96 01/29/17 04:00 Room Air 01/29/17 00:00 97.7 82 18 132/58 (82) 94 01/29/17 00:00 Room Air 01/28/17 20:00 82 01/28/17 20:00 97.9 86 20 113/52 (72) 97 01/28/17 19:30 Room Air 01/28/17 16:00 98.8 80 20 152/67 (95) 99 Laboratory Tests Test 01/28/17 07:35 01/29/17 06:55 White Blood Count 11.7 TH/MM3 11.3 TH/MM3 Red Blood Count 3.59 MIL/MM3 3.37 MIL/MM3 Hemoglobin 10.6 GM/DL 9.9 GM/DL Hematocrit 31.2 % 28.9 % Mean Corpuscular Volume 86.7 FL 85.7 FL Mean Corpuscular Hemoglobin 29.6 PG 29.4 PG Mean Corpuscular Hemoglobin Concent 34.1 % 34.2 % Red Cell Distribution Width 13.0 % 12.8 % Platelet Count 195 TH/MM3 213 TH/MM3 Mean Platelet Volume 8.4 FL 8.7 FL Neutrophils (%) (Auto) 66.6 % Lymphocytes (%) (Auto) 15.9 % Monocytes (%) (Auto) 13.3 % Eosinophils (%) (Auto) 3.6 % Basophils (%) (Auto) 0.6 % Neutrophils # (Auto) 7.8 TH/MM3 Lymphocytes # (Auto) 1.9 TH/MM3 Monocytes # (Auto) 1.6 TH/MM3 Eosinophils # (Auto) 0.4 TH/MM3 Basophils # (Auto) 0.1 TH/MM3 CBC Comment DIFF FINAL Differential Comment Laboratory Tests Test 01/28/17 07:35 01/29/17 06:55 Blood Urea Nitrogen 21 MG/DL 14 MG/DL Creatinine 1.32 MG/DL 1.27 MG/DL Random Glucose 125 MG/DL 160 MG/DL Calcium Level 8.0 MG/DL 7.7 MG/DL Sodium Level 142 MEQ/L 142 MEQ/L Potassium Level 3.6 MEQ/L 3.5 MEQ/L Chloride Level 110 MEQ/L 111 MEQ/L Carbon Dioxide Level 22.5 MEQ/L 24.4 MEQ/L Anion Gap 10 MEQ/L 7 MEQ/L Estimat Glomerular Filtration Rate 40 ML/MIN 42 ML/MIN Phosphorus Level 2.0 MG/DL Magnesium Level 1.6 MG/DL Microbiology Date/Time Source Procedure Growth Status 01/27/17 13:06 Blood Peripheral Aerobic Blood Culture - Preliminary NO GROWTH IN 2 DAYS Resulted 01/27/17 13:06 Blood Peripheral Anaerobic Blood Culture - Preliminary NO GROWTH IN 2 DAYS Resulted 01/27/17 13:00 Blood Peripheral Aerobic Blood Culture - Preliminary NO GROWTH IN 2 DAYS Resulted 01/27/17 13:00 Blood Peripheral Anaerobic Blood Culture - Preliminary NO GROWTH IN 2 DAYS Resulted 01/27/17 17:19 Stool Stool Pending Received GENERAL: Patient is in no acute distress. HEENT: EOMI, No icterus. NECK: Supple. LUNGS: Clear breath sounds. CARDIAC: Regular rate and rhythm ABDOMEN: Soft, non tender. EXTREMITIES: No CCE. SKIN: No rash. Assessment and Plan Assessment and Plan Sepsis present on admission E.coli bacteremia. Repeat blood culture negative. E.coli UTI ? complicated. Prior h/o renal stones. Reports h/o flank pain off and on for last 4 weeks. DM uncontrolled on admission. CKD Recs: Continue Zosyn IV. E. coli resistant to cipro. Follow cultures Follow clinically. If the repeat blood culture is negative she can probably be treated with oral such as ampicillin or ceftin PO. Neel Rdz MD Jan 29, 2017 14:45
[2017-01-29] MEDS: INSULIN DETEMIR 100 UNITS/ML VIAL SQ SCH (21:00)
--- NOTE | 2017-01-29 21:14 | HHI.PR ---
Subjective Remarks Patient seen this morning. Says she feels all right. Denies any chest pain or shortness of breath. Denies any dysuria. Objective Vital Signs Date Time Temp Pulse Resp B/P (MAP) Pulse Ox O2 Delivery O2 Flow Rate FiO2 01/29/17 16:00 98.6 78 20 196/84 (121) 96 01/29/17 14:38 89 01/29/17 12:00 98.6 82 20 132/62 (85) 98 01/29/17 09:43 20 01/29/17 08:00 98.9 78 20 169/73 (105) 94 01/29/17 07:00 Room Air 01/29/17 04:00 97.5 79 18 119/59 (79) 96 01/29/17 04:00 Room Air 01/29/17 00:00 97.7 82 18 132/58 (82) 94 01/29/17 00:00 Room Air I/O 01/28/17 01/28/17 01/28/17 01/29/17 01/29/17 01/29/17 07:00 15:00 23:00 07:00 15:00 23:00 Intake Total 620 ml 1662 ml 480 ml 1050 ml Output Total 1000 ml 950 ml Balance -380 ml 712 ml 480 ml 1050 ml Intake Oral 570 ml 720 ml 480 ml IV Total 50 ml 942 ml 1050 ml Output Urine Total 1000 ml 950 ml # Voids 3 3 # Bowel Movements 0 0 Result Diagram: 01/29/17 0655 01/29/17 06 Objective Remarks GENERAL: patient sitting up in bed. Appears comfortable. SKIN: Warm and dry. HEAD: Normocephalic. EYES: No scleral icterus. No injection or drainage. NECK: Supple, trachea midline. No JVD or lymphadenopathy. CARDIOVASCULAR: Regular rate and rhythm without murmurs, gallops, or rubs. RESPIRATORY: Breath sounds equal bilaterally. No accessory muscle use. GASTROINTESTINAL: Abdomen soft, non-tender, nondistended. MUSCULOSKELETAL: No cyanosis, or edema. BACK: Nontender without obvious deformity. No CVA tenderness. A/P Assessment and Plan ==== 01/29/17 Patient recovering well from Escherichia coli UTI, pyelonephritis with Escherichia coli bacteremia. Repeat blood cultures from 01/27 are negative. Escherichia coli from blood culture and urine are unfortunately resistant to Cipro/Levaquin, otherwise would have been able to discharge today. Will switch Zosyn to ceftriaxone. Infectious disease following. She has received IV antibiotics since 01/25. We'll await ID recommendations. 66-year-old female with a past medical history of diabetes and chronic kidney disease who presented to the hospital with nausea, vomiting and diarrhea //Sepsis secondary to Escherichia coli UTI and bacteremia UA with evidence of UTI. On admission low-grade fever, tachycardia, and leukocytosis which are all improving. - Initial blood cultures positive for Escherichia coli resistant to Levaquin and tetracycline. Repeat cultures with NGTD. - Urine culture positive for Escherichia coli resistant to Cipro and tetracycline. - Consulted ID, D/W Dr. Mac, continue Zosyn for now pending cultures - Checked renal ultrasound showed no evidence of obstruction with trace perinephric fluid bilaterally. //Gastroenteritis/ Dehydration The pt had been having severe nausea and vomiting for days prior to admission. More recently she developed diarrhea which has resolved. She is currently tolerating oral intake. No abdominal pain. She did have a fish sandwich prior to the onset of symptoms. The patient likely has viral or bacterial gastroenteritis. - Continue supportive care including fluids and antiemetics as needed. - stool cultures and C diff PCR ordered, however stools have normalized - Diet as tolerated //DM Poorly controlled. Missed several doses of Victoza s/t sickness. Glucose over 500 on admission. Anion gap not elevated. Hemoglobin A1c 7.6. Blood glucoses improving. - IVFs. - Levemir 20 units daily. - ISS, diabetic diet. //Generalized weakness S/t above. TSH and B12 within normal limits. Vitamin D low. - PT. - Started vitamin D supplementation //Acute kidney injury on chronic kidney disease: Reports normal GFR of 43-49. Creatinine 2.3 and GFR 21 at admission. Creatinine has trended down. Likely secondary to ATN from sepsis. - IV fluids. - Avoid nephrotoxic agents. - Monitor BMP //Electrolyte derangement: Calcium and phosphorus low. - Replace electrolytes as indicated - continue to monitor //URI: Complains of upper respiratory wheezing. Lungs clear on exam and chest x -ray is clear. Satting well on room air. - Supportive care with antihistamine and nebs as needed PPx: Heparin Discharge Planning Escherichia coli bacteremia secondary to UTI. Resistant to fluoroquinolones. -May need IV antibiotics at discharge. Plan pending infectious disease. -Patient lives in [place] and is on vacation. Devendra Matthews MD Jan 29, 2017 21:14
[2017-01-29] MEDS ORDERED: cefTRIAXone INJ 1,000 MG in SODIUM CHLORIDE 0.9% INJ 100 ML IV ONE (21:15)
[2017-01-30] VITALS (9 sets, daily range): BP systolic 138–179; BP diastolic 66–82; PULSE 75–94; RESP 18–22; TEMP 98.1–102; O2SAT 95–99
[2017-01-30] MEDS: HEPARIN SODIUM - SQ 10,000 UNITS/ML VIAL SQ SCH ×3 (05:25→21:09)
[2017-01-30] MEDS: ACETAMINOPHEN 325 MG TAB PO PRN (05:52)
[2017-01-30 07:44] LABS: AUTOMATED NEUTROPHIL # 12.1 TH/MM3 (1.8-7.7); BASOPHIL # 0.1 TH/MM3 (0-0.2); BASOPHIL % 0.6 % (0.0-2.0); EOSINOPHIL # 0.3 TH/MM3 (0-0.4); EOSINOPHIL % 1.7 % (0.0-4.0); HEMATOCRIT 29.3 % (35.0-46.0); HEMO FLAGS DIFF FINAL; LYMPHOCYTE # 1.3 TH/MM3 (1.0-4.8); MEAN CORPUSCULAR HEMOGLOBIN 29.8 PG (27.0-34.0); MEAN CORPUSCULAR HGB CONC 34.6 % (32.0-36.0); MONO % 6.9 % (0.0-8.0); NEUT % 81.8 % (16.0-70.0); PLATELET COUNT 241 TH/MM3 (150-450); RED BLOOD COUNT 3.41 MIL/MM3 (4.00-5.30); RED CELL DISTRIBUTION WIDTH 12.8 % (11.6-17.2); WHITE BLOOD COUNT 14.8 TH/MM3 (4.0-11.0)
[2017-01-30 08:06] LABS: BICARBONATE 23.3 MEQ/L (21.0-32.0); MAGNESIUM 1.4 MG/DL (1.5-2.5); POTASSIUM 3.7 MEQ/L (3.5-5.1)
[2017-01-30] MEDS: CHOLECALCIFEROL (VIT D3) 5000 UNIT CAP PO SCH (09:17)
[2017-01-30] MEDS: CETIRIZINE HCL 10 MG TAB PO SCH (09:17)
[2017-01-30] MEDS: CALCIUM CARBONATE 500 MG CHEWABLE TAB CHEW SCH ×2 (09:17→21:09)
[2017-01-30] MEDS: PANTOPRAZOLE SOD 20 MG DELAYED RELEASE TAB PO SCH (09:17)
[2017-01-30] MEDS: SODIUM CHLORIDE 0.9% FLUSH 10 ML FLUSH IV FLUSH SCH ×2 (09:18→21:10)
[2017-01-30] MEDS: INSULIN ASPART SUPPLEMENTAL SCALE SQ SCH ×4 (09:18→21:08)
--- NOTE | 2017-01-30 11:42 | HHI.IDPN ---
Note Infectious Disease Note ID coverage. Patient developed chills and fever this am.. Denies dysuria. Has non productive cough. No SOB. Feels weak. Presented to the hospital with nausea, vomiting and diarrhea. She had a fish sandwich for dinner and then at approximately 2 AM she woke up feeling feverish. She said she was severely cold and had chills, subjective fevers. On Monday morning she started vomiting bile. She said that everything she ate or drank would come up. Past Family Social History Allergies: Coded Allergies: No Known Allergies (Unverified , 01/25/17) Past Medical History DM CKD stage III s/t NSAID use Melanoma of back s/p surgery Past Surgical History Cholecystectomy C/s x 2 ANTIBIOTICS: Ceftriaxone. Social History No alcohol No smoking No illicit drugs. OBJECTIVE: Vital Signs Date Time Temp Pulse Resp B/P (MAP) Pulse Ox O2 Delivery O2 Flow Rate FiO2 01/30/17 08:30 Room Air 01/30/17 08:30 91 01/30/17 08:10 98.8 87 18 151/77 (101) 95 01/30/17 05:28 102.0 01/30/17 04:00 100.4 94 22 141/70 (93) 97 01/30/17 04:00 Room Air 01/30/17 04:00 100.4 82 22 148/82 (104) 95 01/30/17 00:00 Room Air 01/30/17 00:00 98.1 85 21 138/66 (90) 95 01/29/17 21:00 Room Air 01/29/17 20:00 78 01/29/17 20:00 98.8 89 21 148/66 (93) 99 01/29/17 16:00 98.6 78 20 196/84 (121) 96 01/29/17 14:38 89 01/29/17 12:00 98.6 82 20 132/62 (85) 98 Laboratory Tests Test 01/29/17 06:55 01/30/17 07:15 White Blood Count 11.3 TH/MM3 14.8 TH/MM3 Red Blood Count 3.37 MIL/MM3 3.41 MIL/MM3 Hemoglobin 9.9 GM/DL 10.2 GM/DL Hematocrit 28.9 % 29.3 % Mean Corpuscular Volume 85.7 FL 86.0 FL Mean Corpuscular Hemoglobin 29.4 PG 29.8 PG Mean Corpuscular Hemoglobin Concent 34.2 % 34.6 % Red Cell Distribution Width 12.8 % 12.8 % Platelet Count 213 TH/MM3 241 TH/MM3 Mean Platelet Volume 8.7 FL 8.7 FL Neutrophils (%) (Auto) 81.8 % Lymphocytes (%) (Auto) 9.0 % Monocytes (%) (Auto) 6.9 % Eosinophils (%) (Auto) 1.7 % Basophils (%) (Auto) 0.6 % Neutrophils # (Auto) 12.1 TH/MM3 Lymphocytes # (Auto) 1.3 TH/MM3 Monocytes # (Auto) 1.0 TH/MM3 Eosinophils # (Auto) 0.3 TH/MM3 Basophils # (Auto) 0.1 TH/MM3 CBC Comment DIFF FINAL Differential Comment Laboratory Tests Test 01/29/17 06:55 01/30/17 07:15 Blood Urea Nitrogen 14 MG/DL 10 MG/DL Creatinine 1.27 MG/DL 1.29 MG/DL Random Glucose 160 MG/DL 240 MG/DL Calcium Level 7.7 MG/DL 7.5 MG/DL Phosphorus Level 2.0 MG/DL 1.6 MG/DL Magnesium Level 1.6 MG/DL 1.4 MG/DL Sodium Level 142 MEQ/L 143 MEQ/L Potassium Level 3.5 MEQ/L 3.7 MEQ/L Chloride Level 111 MEQ/L 110 MEQ/L Carbon Dioxide Level 24.4 MEQ/L 23.3 MEQ/L Anion Gap 7 MEQ/L 10 MEQ/L Estimat Glomerular Filtration Rate 42 ML/MIN 41 ML/MIN Albumin 1.9 GM/DL Microbiology Date/Time Source Procedure Growth Status 01/27/17 13:06 Blood Peripheral Aerobic Blood Culture - Preliminary NO GROWTH IN 3 DAYS Resulted 01/27/17 13:06 Blood Peripheral Anaerobic Blood Culture - Preliminary NO GROWTH IN 3 DAYS Resulted 01/27/17 13:00 Blood Peripheral Aerobic Blood Culture - Preliminary NO GROWTH IN 3 DAYS Resulted 01/27/17 13:00 Blood Peripheral Anaerobic Blood Culture - Preliminary NO GROWTH IN 3 DAYS Resulted 01/27/17 17:19 Stool Stool - Final NO ENTERIC PATHOGENS DETECTED BY PCR... Complete GENERAL: Patient is in no acute distress. HEENT: EOMI, No icterus. NECK: Supple. No adenopathy. LUNGS: Clear breath sounds. CARDIAC: Regular rate and rhythm. No murmurs. ABDOMEN: Soft, non tender. EXTREMITIES: No CCE. SKIN: No rash. NEURO: Alert, non focal. PSYCH: Clear mentation. Assessment and Plan Assessment and Plan Sepsis present on admission E.coli bacteremia. Repeat blood culture negative. E.coli UTI (resistant to levaquin) ? complicated. Prior h/o renal stones. Reports h/o flank pain off and on for last 4 weeks. DM uncontrolled on admission. CKD Recs: Continue Ceftriaxone. E. coli resistant to cipro. Add Vancomycin. Monitor WBC and Temps. Neel Rdz MD Jan 30, 2017 11:42
[2017-01-30] MEDS: VANCOMYCIN INJ 1,000 MG in SODIUM CHLOR 0.9% 250 ML INJ 250 ML IV SCH (13:26)
--- NOTE | 2017-01-30 14:30 | HHI.PR ---
Subjective Remarks Follow-up UTI, bacteremia. The patient states that she is feeling a little better today. No abdominal pain, nausea, vomiting. Denies chest pain or dyspnea. Objective Vitals Vital Signs Date Time Temp Pulse Resp B/P (MAP) Pulse Ox O2 Delivery O2 Flow Rate FiO2 01/30/17 12:10 99.0 86 18 170/70 (103) 95 01/30/17 08:30 Room Air 01/30/17 08:30 91 01/30/17 08:10 98.8 87 18 151/77 (101) 95 01/30/17 05:28 102.0 01/30/17 04:00 100.4 94 22 141/70 (93) 97 01/30/17 04:00 Room Air 01/30/17 04:00 100.4 82 22 148/82 (104) 95 01/30/17 00:00 Room Air 01/30/17 00:00 98.1 85 21 138/66 (90) 95 01/29/17 21:00 Room Air 01/29/17 20:00 78 01/29/17 20:00 98.8 89 21 148/66 (93) 99 01/29/17 16:00 98.6 78 20 196/84 (121) 96 01/29/17 14:38 89 I/O 01/29/17 01/29/17 01/29/17 01/30/17 01/30/17 01/30/17 06:59 14:59 22:59 06:59 14:59 22:59 Intake Total 1662 ml 480 ml 1321 ml 660 ml Output Total 950 ml Balance 712 ml 480 ml 1321 ml 660 ml Intake Oral 720 ml 480 ml 560 ml IV Total 942 ml 1321 ml 100 ml Output Urine Total 950 ml # Voids 3 5 # Bowel Movements 0 1 Result Diagram: 01/30/1715 01/30/1715 Imaging Last Impressions Renal Ultrasound 01/27/17 0000 Signed Impressions: Service Date/Time: Friday, January 27, 2017 14:09 - CONCLUSION: 1. No evidence of obstruction. Trace perinephric fluid bilaterally Pro Bishop MD Chest X-Ray 01/25/17 0000 Signed Impressions: Service Date/Time: Wednesday, January 25, 2017 19:14 - CONCLUSION: No acute disease. Ezequiel Quiñones MD Objective Remarks General: Obese female in no acute distress. Heart: Regular rate and rhythm. No murmur. Lungs: Clear to auscultation bilaterally. No wheezes, rales, or rhonchi. Breathing is nonlabored. Abdomen: Soft, nontender, nondistended. Extremities: No lower extremity edema. Psych: Alert and oriented. Procedures None Urinary Catheter: No Vascular Central Line Catheter: No A/P Problem List: (1) Generalized weakness ICD Code: R53.1 - Weakness (2) Diabetes mellitus ICD Code: E11.9 - Type 2 diabetes mellitus without complications (3) UTI (urinary tract infection) ICD Code: N39.0 - Urinary tract infection, site not specified Status: Acute (4) Dehydration ICD Code: E86.0 - Dehydration Status: Acute (5) Sepsis ICD Code: A41.9 - Sepsis, unspecified organism Status: Acute Assessment and Plan 1. Sepsis secondary to UTI: Urine and blood cultures positive for Escherichia coli. Appreciate infectious disease recommendations. Patient still having fevers , 102.3 last night. Continue Rocephin, vancomycin. 2. UTI: Urine culture growing Escherichia coli. Renal ultrasound shows no obstruction. Continue antibiotics. 3. Bacteremia: Blood cultures growing Escherichia coli. Appreciate infectious disease recommendations. Continue vancomycin, Rocephin. 4. Diabetes mellitus: Poorly controlled. Continue Levemir. Monitor Accu-Cheks and cover with sliding scale insulin. 5. Generalized weakness: Continue physical therapy. 6. Acute kidney injury superimposed on chronic kidney disease stage III: Creatinine has improved. Continue IV fluids. Avoid nephrotoxins. 7. Upper respiratory infection: Continue supportive care. 8. DVT prophylaxis: Heparin. Discharge Planning When cleared by infectious disease. May require outpatient IV antibiotics. Problem Qualifiers (1) UTI (urinary tract infection): Qualified Codes: N30.00 - Acute cystitis without hematuria (2) Sepsis: Qualified Codes: A41.9 - Sepsis, unspecified organism Earnest Romero MD Jan 30, 2017 14:30
[2017-01-30] MEDS: INSULIN DETEMIR 100 UNITS/ML VIAL SQ SCH (21:08)
[2017-01-30] MEDS: cefTRIAXone INJ 2,000 MG in SODIUM CHLORIDE 0.9% INJ 100 ML IV SCH (21:09)
[2017-01-31] VITALS (10 sets, daily range): BP systolic 150–181; BP diastolic 67–78; PULSE 75–109; RESP 16–20; TEMP 98.6–99.2; O2SAT 95–98
[2017-01-31] MEDS: ACETAMINOPHEN 325 MG TAB PO PRN ×2 (00:03→16:49)
[2017-01-31] MEDS: VANCOMYCIN INJ 1,000 MG in SODIUM CHLOR 0.9% 250 ML INJ 250 ML IV SCH ×3 (00:05→23:44)
[2017-01-31] MEDS: HEPARIN SODIUM - SQ 10,000 UNITS/ML VIAL SQ SCH ×3 (05:57→21:20)
[2017-01-31] MEDS: SODIUM CHLORIDE 0.9% FLUSH 10 ML FLUSH IV FLUSH SCH ×2 (09:06→21:24)
[2017-01-31] MEDS: CALCIUM CARBONATE 500 MG CHEWABLE TAB CHEW SCH ×2 (09:06→21:23)
[2017-01-31] MEDS: CETIRIZINE HCL 10 MG TAB PO SCH (09:07)
[2017-01-31] MEDS: CHOLECALCIFEROL (VIT D3) 5000 UNIT CAP PO SCH (09:07)
[2017-01-31] MEDS: PANTOPRAZOLE SOD 20 MG DELAYED RELEASE TAB PO SCH (09:07)
[2017-01-31] MEDS: INSULIN ASPART SUPPLEMENTAL SCALE SQ SCH ×4 (09:07→21:21)
--- NOTE | 2017-01-31 12:03 | HHI.IDPN ---
Note Infectious Disease Note ID coverage. Patient developed drenching sweats this am. Denies dysuria. Notes loose stool. Still with non productive cough. No SOB. Feels weak. Presented to the hospital with nausea, vomiting and diarrhea. She had a fish sandwich for dinner and then at approximately 2 AM she woke up feeling feverish. She said she was severely cold and had chills, subjective fevers. On Monday morning she started vomiting bile. She said that everything she ate or drank would come up. Past Family Social History Allergies: Coded Allergies: No Known Allergies (Unverified , 01/25/17) Past Medical History DM CKD stage III s/t NSAID use Melanoma of back s/p surgery Past Surgical History Cholecystectomy C/s x 2 ANTIBIOTICS: Ceftriaxone. Vancomycin #2 Social History No alcohol No smoking No illicit drugs. OBJECTIVE: Vital Signs Date Time Temp Pulse Resp B/P (MAP) Pulse Ox O2 Delivery O2 Flow Rate FiO2 01/31/17 09:12 75 01/31/17 09:12 Room Air 01/31/17 08:00 99.0 75 18 164/72 (102) 95 01/31/17 05:42 99.1 78 18 150/69 (96) 96 01/31/17 01:32 99.2 81 18 158/70 (99) 96 01/30/17 20:39 100.0 83 18 179/77 (111) 96 01/30/17 20:38 84 01/30/17 20:00 Room Air 01/30/17 16:10 98.5 75 18 168/74 (105) 99 01/30/17 12:10 99.0 86 18 170/70 (103) 95 Laboratory Tests Test 01/30/17 07:15 White Blood Count 14.8 TH/MM3 Red Blood Count 3.41 MIL/MM3 Hemoglobin 10.2 GM/DL Hematocrit 29.3 % Mean Corpuscular Volume 86.0 FL Mean Corpuscular Hemoglobin 29.8 PG Mean Corpuscular Hemoglobin Concent 34.6 % Red Cell Distribution Width 12.8 % Platelet Count 241 TH/MM3 Mean Platelet Volume 8.7 FL Neutrophils (%) (Auto) 81.8 % Lymphocytes (%) (Auto) 9.0 % Monocytes (%) (Auto) 6.9 % Eosinophils (%) (Auto) 1.7 % Basophils (%) (Auto) 0.6 % Neutrophils # (Auto) 12.1 TH/MM3 Lymphocytes # (Auto) 1.3 TH/MM3 Monocytes # (Auto) 1.0 TH/MM3 Eosinophils # (Auto) 0.3 TH/MM3 Basophils # (Auto) 0.1 TH/MM3 CBC Comment DIFF FINAL Differential Comment Laboratory Tests Test 01/30/17 07:15 Blood Urea Nitrogen 10 MG/DL Creatinine 1.29 MG/DL Random Glucose 240 MG/DL Albumin 1.9 GM/DL Calcium Level 7.5 MG/DL Phosphorus Level 1.6 MG/DL Magnesium Level 1.4 MG/DL Sodium Level 143 MEQ/L Potassium Level 3.7 MEQ/L Chloride Level 110 MEQ/L Carbon Dioxide Level 23.3 MEQ/L Anion Gap 10 MEQ/L Estimat Glomerular Filtration Rate 41 ML/MIN Microbiology Date/Time Source Procedure Growth Status 01/27/17 13:06 Blood Peripheral Aerobic Blood Culture - Preliminary NO GROWTH IN 3 DAYS Resulted 01/27/17 13:06 Blood Peripheral Anaerobic Blood Culture - Preliminary NO GROWTH IN 3 DAYS Resulted 01/27/17 13:00 Blood Peripheral Aerobic Blood Culture - Preliminary NO GROWTH IN 3 DAYS Resulted 01/27/17 13:00 Blood Peripheral Anaerobic Blood Culture - Preliminary NO GROWTH IN 3 DAYS Resulted 01/27/17 17:19 Stool Stool - Final NO ENTERIC PATHOGENS DETECTED BY PCR... Complete GENERAL: Patient is in no acute distress. HEENT: JANY. EOMI, No icterus. NECK: Supple. No adenopathy. LUNGS: Decreased breath sounds. CARDIAC: Regular rate and rhythm. No murmurs. ABDOMEN: Soft, non tender. EXTREMITIES: No CCE. SKIN: No rash. NEURO: Alert, non focal. PSYCH: Clear mentation. Calm. Assessment and Plan Assessment and Plan Sepsis present on admission E.coli bacteremia. Repeat blood culture negative. E.coli UTI (resistant to levaquin) ? complicated. Prior h/o renal stones. Reports h/o flank pain off and on for last 4 weeks. DM uncontrolled on admission. CKD Fever persisting. Now with sweats. Recs: Continue Ceftriaxone. E. coli resistant to cipro. Continue Vancomycin. CXR to evaluate for pneumonia. Monitor WBC. Monitor temps. Neel Rdz MD Jan 31, 2017 12:02
[2017-01-31 13:29] LABS: AUTOMATED NEUTROPHIL # 7.8 TH/MM3 (1.8-7.7); BASOPHIL # 0.1 TH/MM3 (0-0.2); BASOPHIL % 0.9 % (0.0-2.0); EOSINOPHIL # 0.3 TH/MM3 (0-0.4); EOSINOPHIL % 2.7 % (0.0-4.0); HEMATOCRIT 29.4 % (35.0-46.0); HEMO FLAGS DIFF FINAL; LYMPH % 17.5 % (9.0-44.0); LYMPHOCYTE # 1.9 TH/MM3 (1.0-4.8); MEAN CELL VOLUME 85.8 FL (80.0-100.0); MEAN CORPUSCULAR HEMOGLOBIN 29.7 PG (27.0-34.0); MEAN CORPUSCULAR HGB CONC 34.6 % (32.0-36.0); MONO % 5.9 % (0.0-8.0); PLATELET COUNT 255 TH/MM3 (150-450); RED BLOOD COUNT 3.43 MIL/MM3 (4.00-5.30); RED CELL DISTRIBUTION WIDTH 13.2 % (11.6-17.2); WHITE BLOOD COUNT 10.7 TH/MM3 (4.0-11.0)
[2017-01-31 13:54] LABS: BICARBONATE 26.8 MEQ/L (21.0-32.0); POTASSIUM 3.6 MEQ/L (3.5-5.1)
--- NOTE | 2017-01-31 13:55 | HHI.PR ---
Subjective Remarks Follow up fever, uti, bacteremia. Patient had low-grade fever overnight. She also reported significant night sweats. Feels a little better today, but states that overall she does not feel well. Denies chest pain, dyspnea. Objective Vitals Vital Signs Date Time Temp Pulse Resp B/P (MAP) Pulse Ox O2 Delivery O2 Flow Rate FiO2 01/31/17 12:00 98.7 89 20 163/78 (106) 97 01/31/17 09:12 75 01/31/17 09:12 Room Air 01/31/17 08:00 99.0 75 18 164/72 (102) 95 01/31/17 05:42 99.1 78 18 150/69 (96) 96 01/31/17 01:32 99.2 81 18 158/70 (99) 96 01/30/17 20:39 100.0 83 18 179/77 (111) 96 01/30/17 20:38 84 01/30/17 20:00 Room Air 01/30/17 16:10 98.5 75 18 168/74 (105) 99 I/O 01/30/17 01/30/17 01/30/17 01/31/17 01/31/17 01/31/17 07:00 15:00 23:00 07:00 15:00 23:00 Intake Total 660 ml 850 ml 720 ml Balance 660 ml 850 ml 720 ml Intake Oral 560 ml 600 ml 720 ml IV Total 100 ml 250 ml # Voids 5 3 2 # Bowel Movements 1 0 Result Diagram: 01/31/17 1315 01/30/17 0715 Imaging Last Impressions Renal Ultrasound 01/27/17 0000 Signed Impressions: Service Date/Time: Friday, January 27, 2017 14:09 - CONCLUSION: 1. No evidence of obstruction. Trace perinephric fluid bilaterally Pro Bishop MD Chest X-Ray 01/25/17 0000 Signed Impressions: Service Date/Time: Wednesday, January 25, 2017 19:14 - CONCLUSION: No acute disease. Ezequiel Quiñones MD Objective Remarks General: Obese female in no acute distress. Sitting up in a chair. Heart: Regular rate and rhythm. No murmur. Lungs: Clear to auscultation bilaterally. No wheezes, rales, or rhonchi. Breathing is nonlabored. Abdomen: Soft, nontender, nondistended. Extremities: No lower extremity edema. Psych: Alert and oriented. Procedures None Urinary Catheter: No Vascular Central Line Catheter: No A/P Problem List: (1) Generalized weakness ICD Code: R53.1 - Weakness (2) Diabetes mellitus ICD Code: E11.9 - Type 2 diabetes mellitus without complications (3) UTI (urinary tract infection) ICD Code: N39.0 - Urinary tract infection, site not specified Status: Acute (4) Dehydration ICD Code: E86.0 - Dehydration Status: Acute (5) Sepsis ICD Code: A41.9 - Sepsis, unspecified organism Status: Acute Assessment and Plan 1. Sepsis secondary to UTI: Urine and blood cultures positive for Escherichia coli. Appreciate infectious disease recommendations. Patient still having fevers , 100.0 last night. Continue Rocephin, vancomycin. CXR ordered. 2. UTI: Urine culture growing Escherichia coli. Renal ultrasound shows no obstruction. Continue antibiotics. 3. Bacteremia: Blood cultures growing Escherichia coli. Appreciate infectious disease recommendations. Continue vancomycin, Rocephin. 4. Diabetes mellitus: Poorly controlled. Continue Levemir. Monitor Accu-Cheks and cover with sliding scale insulin. 5. Generalized weakness: Continue physical therapy. 6. Acute kidney injury superimposed on chronic kidney disease stage III: Creatinine has improved. Continue IV fluids. Avoid nephrotoxins. 7. Upper respiratory infection: Continue supportive care. 8. DVT prophylaxis: Heparin. Discussed with Dr. Rdz Discharge Planning When cleared by infectious disease. May require outpatient IV antibiotics. Problem Qualifiers (1) UTI (urinary tract infection): Qualified Codes: N30.00 - Acute cystitis without hematuria (2) Sepsis: Qualified Codes: A41.9 - Sepsis, unspecified organism Earnest Romero MD Jan 31, 2017 13:55
--- NOTE | 2017-01-31 15:45 | RADRPT ---
EXAM DATE/TIME: 01/31/2017 15:57 [facility] COMPARISON: CHEST SINGLE AP, January 25, 2017, 19:14. INDICATIONS : Short of breath. MEDICAL HISTORY : Hypertension. Diabetes mellitus type II. SURGICAL HISTORY : None. ENCOUNTER: Subsequent ACUITY: 2 days PAIN SCORE: 0/10 LOCATION: Bilateral chest FINDINGS: A single view of the chest demonstrates the lungs to be symmetrically aerated without evidence of mas s, infiltrate or effusion. There is prominence of the pulmonary vasculature bilaterally. The cardiome diastinal contours are unremarkable and stable. Osseous structures are intact and stable. There is a n old healed fracture of the right clavicle. CONCLUSION: Pulmonary venous congestion. Otherwise, no significant change compared to the prior study. Ezequiel Quiñones MD on January 31, 2017 at 15:43 Board Certified Radiologist. This report was verified electronically.
[2017-01-31] MEDS: INSULIN DETEMIR 100 UNITS/ML VIAL SQ SCH (21:22)
[2017-01-31] MEDS: cefTRIAXone INJ 2,000 MG in SODIUM CHLORIDE 0.9% INJ 100 ML IV SCH (21:24)
[2017-02-01] VITALS (8 sets, daily range): BP systolic 115–167; BP diastolic 67–84; PULSE 74–87; RESP 16–20; TEMP 97.9–99; O2SAT 94–98
[2017-02-01] MEDS: ACETAMINOPHEN/HYDROcodone 325 MG/10 MG TAB PO PRN ×2 (00:49→04:51)
[2017-02-01] MEDS: HEPARIN SODIUM - SQ 10,000 UNITS/ML VIAL SQ SCH ×3 (04:59→20:42)
[2017-02-01 08:29] LABS: AUTOMATED NEUTROPHIL # 6.6 TH/MM3 (1.8-7.7); BASOPHIL # 0.1 TH/MM3 (0-0.2); BASOPHIL % 0.7 % (0.0-2.0); EOSINOPHIL # 0.4 TH/MM3 (0-0.4); EOSINOPHIL % 3.3 % (0.0-4.0); HEMATOCRIT 30.1 % (35.0-46.0); HEMO FLAGS DIFF FINAL; LYMPH % 25.7 % (9.0-44.0); LYMPHOCYTE # 2.8 TH/MM3 (1.0-4.8); MEAN CELL VOLUME 85.5 FL (80.0-100.0); MEAN CORPUSCULAR HEMOGLOBIN 30.2 PG (27.0-34.0); MEAN CORPUSCULAR HGB CONC 35.4 % (32.0-36.0); MONO % 8.7 % (0.0-8.0); NEUT % 61.6 % (16.0-70.0); PLATELET COUNT 286 TH/MM3 (150-450); RED BLOOD COUNT 3.52 MIL/MM3 (4.00-5.30); RED CELL DISTRIBUTION WIDTH 13.4 % (11.6-17.2); WHITE BLOOD COUNT 10.8 TH/MM3 (4.0-11.0)
[2017-02-01] MEDS: CHOLECALCIFEROL (VIT D3) 5000 UNIT CAP PO SCH (09:03)
[2017-02-01] MEDS: INSULIN ASPART SUPPLEMENTAL SCALE SQ SCH ×4 (09:03→20:42)
[2017-02-01] MEDS: CALCIUM CARBONATE 500 MG CHEWABLE TAB CHEW SCH ×2 (09:03→20:40)
[2017-02-01] MEDS: PANTOPRAZOLE SOD 20 MG DELAYED RELEASE TAB PO SCH (09:04)
[2017-02-01] MEDS: SODIUM CHLORIDE 0.9% FLUSH 10 ML FLUSH IV FLUSH SCH ×2 (09:04→20:40)
[2017-02-01] MEDS: CETIRIZINE HCL 10 MG TAB PO SCH (09:04)
[2017-02-01 09:06] LABS: BICARBONATE 26.4 MEQ/L (21.0-32.0); POTASSIUM 3.3 MEQ/L (3.5-5.1)
--- NOTE | 2017-02-01 12:39 | HHI.IDPN ---
Note Infectious Disease Note ID coverage. Patient notes vomiting this am. Notes slow urine stream. Occasional non productive cough. No SOB. Feels weak. Temp lower. Presented to the hospital with nausea, vomiting and diarrhea. She had a fish sandwich for dinner and then at approximately 2 AM she woke up feeling feverish. She said she was severely cold and had chills, subjective fevers. On Monday morning she started vomiting bile. She said that everything she ate or drank would come up. Past Family Social History Allergies: Coded Allergies: No Known Allergies (Unverified , 01/25/17) Past Medical History DM CKD stage III s/t NSAID use Melanoma of back s/p surgery Past Surgical History Cholecystectomy C/s x 2 ANTIBIOTICS: Ceftriaxone. Vancomycin #3 Social History No alcohol No smoking No illicit drugs. OBJECTIVE: Vital Signs Date Time Temp Pulse Resp B/P (MAP) Pulse Ox O2 Delivery O2 Flow Rate FiO2 01/31/17 09:12 75 01/31/17 09:12 Room Air 01/31/17 08:00 99.0 75 18 164/72 (102) 95 01/31/17 05:42 99.1 78 18 150/69 (96) 96 01/31/17 01:32 99.2 81 18 158/70 (99) 96 01/30/17 20:39 100.0 83 18 179/77 (111) 96 01/30/17 20:38 84 01/30/17 20:00 Room Air 01/30/17 16:10 98.5 75 18 168/74 (105) 99 01/30/17 12:10 99.0 86 18 170/70 (103) 95 Laboratory Tests Test 01/30/17 07:15 White Blood Count 14.8 TH/MM3 Red Blood Count 3.41 MIL/MM3 Hemoglobin 10.2 GM/DL Hematocrit 29.3 % Mean Corpuscular Volume 86.0 FL Mean Corpuscular Hemoglobin 29.8 PG Mean Corpuscular Hemoglobin Concent 34.6 % Red Cell Distribution Width 12.8 % Platelet Count 241 TH/MM3 Mean Platelet Volume 8.7 FL Neutrophils (%) (Auto) 81.8 % Lymphocytes (%) (Auto) 9.0 % Monocytes (%) (Auto) 6.9 % Eosinophils (%) (Auto) 1.7 % Basophils (%) (Auto) 0.6 % Neutrophils # (Auto) 12.1 TH/MM3 Lymphocytes # (Auto) 1.3 TH/MM3 Monocytes # (Auto) 1.0 TH/MM3 Eosinophils # (Auto) 0.3 TH/MM3 Basophils # (Auto) 0.1 TH/MM3 CBC Comment DIFF FINAL Differential Comment Laboratory Tests Test 01/30/17 07:15 Blood Urea Nitrogen 10 MG/DL Creatinine 1.29 MG/DL Random Glucose 240 MG/DL Albumin 1.9 GM/DL Calcium Level 7.5 MG/DL Phosphorus Level 1.6 MG/DL Magnesium Level 1.4 MG/DL Sodium Level 143 MEQ/L Potassium Level 3.7 MEQ/L Chloride Level 110 MEQ/L Carbon Dioxide Level 23.3 MEQ/L Anion Gap 10 MEQ/L Estimat Glomerular Filtration Rate 41 ML/MIN Microbiology Date/Time Source Procedure Growth Status 01/27/17 13:06 Blood Peripheral Aerobic Blood Culture - Preliminary NO GROWTH IN 3 DAYS Resulted 01/27/17 13:06 Blood Peripheral Anaerobic Blood Culture - Preliminary NO GROWTH IN 3 DAYS Resulted 01/27/17 13:00 Blood Peripheral Aerobic Blood Culture - Preliminary NO GROWTH IN 3 DAYS Resulted 01/27/17 13:00 Blood Peripheral Anaerobic Blood Culture - Preliminary NO GROWTH IN 3 DAYS Resulted 01/27/17 17:19 Stool Stool - Final NO ENTERIC PATHOGENS DETECTED BY PCR... Complete GENERAL: No acute distress. HEENT: JANY. EOMI, No icterus. NECK: Supple. No adenopathy. LUNGS: Decreased breath sounds. CARDIAC: Regular rate and rhythm. No murmurs. ABDOMEN: Soft, (+) BS, non tender. EXTREMITIES: No clubbing, cyanosis or edema. SKIN: No rash. NEURO: Alert, non focal. PSYCH: Clear mentation. Calm. Assessment and Plan Assessment and Plan Sepsis present on admission E.coli bacteremia. Repeat blood culture negative. E.coli UTI (resistant to levaquin) ? complicated. Prior h/o renal stones. Reports h/o flank pain off and on for last 4 weeks. DM uncontrolled on admission. CKD Leukocytosis - WBC improved. Recs: Continue Ceftriaxone. E. coli resistant to cipro. Continue Vancomycin. If temp stays down today she can be discharged tomorrow on PO Augmentin 500mg tid x 10 days. Neel Rdz MD Feb 01, 2017 12:39
[2017-02-01] MEDS: VANCOMYCIN INJ 1,000 MG in SODIUM CHLOR 0.9% 250 ML INJ 250 ML IV SCH (13:31)
[2017-02-01] MEDS ORDERED: ONDANSETRON HCL 4 MG/2 ML VIAL IV PUSH PRN (14:30)
--- NOTE | 2017-02-01 14:40 | HHI.PR ---
Subjective Remarks Patient denied fever or chills no diarrhea or dysuria He was told by the ID he can be discharged tomorrow if was no fever overnight Objective Vitals Vital Signs Date Time Temp Pulse Resp B/P (MAP) Pulse Ox O2 Delivery O2 Flow Rate FiO2 02/01/17 12:00 98.3 82 20 167/84 (111) 98 02/01/17 09:08 Room Air 02/01/17 09:08 77 02/01/17 08:00 98.4 81 20 120/76 (91) 94 02/01/17 04:39 98.5 75 16 148/81 (103) 96 01/31/17 23:22 98.9 83 16 152/70 (97) 98 01/31/17 20:28 109 01/31/17 20:15 Room Air 01/31/17 19:50 98.6 79 16 170/77 (108) 96 01/31/17 18:08 80 162/67 (98) 01/31/17 16:00 98.8 88 20 181/76 (111) 97 I/O 01/31/17 01/31/17 01/31/17 02/01/17 02/01/17 02/01/17 07:00 15:00 23:00 07:00 15:00 23:00 Intake Total 720 ml 960 ml 720 ml Balance 720 ml 960 ml 720 ml Intake Oral 720 ml 960 ml 720 ml # Voids 2 2 4 # Bowel Movements 1 0 Result Diagram: 02/01/17 0746 02/01/17 0746 Objective Remarks GENERAL: This is a well-nourished, well-developed patient, in no apparent distress. SKIN: No rashes, warm and dry HEAD: Atraumatic. Normocephalic. EYES: Pupils equal round and reactive. Extraocular motions intact. No scleral icterus. ENT: Nose without bleeding, or drainage, Airway patent. NECK: Trachea midline. Supple CARDIOVASCULAR: Regular rate and rhythm without murmurs, gallops, or rubs. RESPIRATORY: Fair air entry bilaterally. No wheezes, rales, or rhonchi. GASTROINTESTINAL: Abdomen soft, non-tender, nondistended. Positive bowel sounds MUSCULOSKELETAL: Extremities without clubbing, cyanosis, or edema. Pedal pulses appreciated NEUROLOGICAL: Awake and alert. Moves all extremity. Normal speech.no focal neurological deficit Procedures None A/P Problem List: (1) Generalized weakness ICD Code: R53.1 - Weakness (2) Diabetes mellitus ICD Code: E11.9 - Type 2 diabetes mellitus without complications (3) UTI (urinary tract infection) ICD Code: N39.0 - Urinary tract infection, site not specified Status: Acute (4) Dehydration ICD Code: E86.0 - Dehydration Status: Acute (5) Sepsis ICD Code: A41.9 - Sepsis, unspecified organism Status: Acute Assessment and Plan 1. Sepsis secondary to UTI: Urine and blood cultures positive for Escherichia coli. Appreciate infectious disease recommendations. Patient still having fevers , 100.0 last night. Continue Rocephin, vancomycin. CXR ordered. 2. UTI: Urine culture growing Escherichia coli. Renal ultrasound shows no obstruction. Continue antibiotics. 3. Bacteremia: Blood cultures growing Escherichia coli. Appreciate infectious disease recommendations. Continue vancomycin, Rocephin. 4. Diabetes mellitus: Poorly controlled. Continue Levemir. Monitor Accu-Cheks and cover with sliding scale insulin. 5. Generalized weakness: Continue physical therapy. 6. Acute kidney injury superimposed on chronic kidney disease stage III: Creatinine has improved. Continue IV fluids. Avoid nephrotoxins. 7. Upper respiratory infection: Continue supportive care. 8. DVT prophylaxis: Heparin. Appreciate ID recommendation, if no temperature till tomorrow patient can be discharged on Augmentin Monitor temperature Discharge Planning When cleared by ID Problem Qualifiers (1) UTI (urinary tract infection): Qualified Codes: N30.00 - Acute cystitis without hematuria (2) Sepsis: Qualified Codes: A41.9 - Sepsis, unspecified organism Juan Miller MD Feb 01, 2017 14:40
[2017-02-01 18:58] LABS: MAGNESIUM 1.4 MG/DL (1.5-2.5); POTASSIUM 3.6 MEQ/L (3.5-5.1)
[2017-02-01] MEDS: cefTRIAXone INJ 2,000 MG in SODIUM CHLORIDE 0.9% INJ 100 ML IV SCH (20:41)
[2017-02-01] MEDS: INSULIN DETEMIR 100 UNITS/ML VIAL SQ SCH (20:42)
[2017-02-02] MEDS: VANCOMYCIN INJ 1,000 MG in SODIUM CHLOR 0.9% 250 ML INJ 250 ML IV SCH (00:20)
[2017-02-02 04:25] VITALS: BP 153/67; PULSE 85; RESP 16; TEMP 98.2; O2SAT 95
[2017-02-02] MEDS: HEPARIN SODIUM - SQ 10,000 UNITS/ML VIAL SQ SCH (05:22)
[2017-02-02 08:00] VITALS: BP 190/85; PULSE 83; RESP 20; TEMP 98; O2SAT 94
[2017-02-02] MEDS: CETIRIZINE HCL 10 MG TAB PO SCH (08:41)
[2017-02-02] MEDS: PANTOPRAZOLE SOD 20 MG DELAYED RELEASE TAB PO SCH (08:41)
[2017-02-02] MEDS: CALCIUM CARBONATE 500 MG CHEWABLE TAB CHEW SCH (08:41)
[2017-02-02] MEDS: CHOLECALCIFEROL (VIT D3) 5000 UNIT CAP PO SCH (08:41)
[2017-02-02] MEDS: SODIUM CHLORIDE 0.9% FLUSH 10 ML FLUSH IV FLUSH SCH (08:42)
[2017-02-02] MEDS: INSULIN ASPART SUPPLEMENTAL SCALE SQ SCH (08:42)
[2017-02-02] MEDS ORDERED: glipiZIDE 5 MG TAB PO SCH (10:45)
[2017-02-02] MEDS ORDERED: LIRAGLUTIDE 1.2 MG SQ SCH (10:45)
[2017-02-02 11:25] VITALS: BP 149/70; PULSE 90; RESP 15; TEMP 98.2; O2SAT 97
[2017-02-02] MEDS ORDERED: AUGM500T7 PO (11:26)
[2017-02-02] MEDS ORDERED: Calcium Carbonate Chew CHEW (11:34)
[2017-02-02] MEDS ORDERED: CHOL5000 PO (11:34)
[2017-02-02 11:56] VITALS: BP 149/70; PULSE 90; RESP 20; TEMP 98.2; O2SAT 97
[2017-02-02] MEDS ORDERED: NOVOLOGSS SQ (12:10)
[2017-02-02] MEDS ORDERED: LEVEMIR SQ (12:10)
[2017-02-02] MEDS ORDERED: NOVOLOGP2 SQ (12:10)
[2017-02-02] MEDS ORDERED: INSU-91 (12:15)
[2017-02-02] MEDS ORDERED: ACCUMIS25 (12:15)
[2017-02-02] MEDS ORDERED: BLOOD GLUCOSE M1 KIT (12:15)
--- NOTE | 2017-02-02 12:25 | HHI.DS ---
Discharge Summary Admission Date Jan 26, 2017 at 02:15 Discharge Date: Feb 02, 2017 Admitting Diagnosis sepsis. UTI. Hyperglycemia. (1) Generalized weakness ICD Code: R53.1 - Weakness (2) Diabetes mellitus ICD Code: E11.9 - Type 2 diabetes mellitus without complications (3) UTI (urinary tract infection) ICD Code: N39.0 - Urinary tract infection, site not specified Status: Acute (4) Dehydration ICD Code: E86.0 - Dehydration Status: Acute (5) Sepsis ICD Code: A41.9 - Sepsis, unspecified organism Status: Acute Procedures None Brief History - From Admission The patient is a 66-year-old female with a past medical history of diabetes and chronic kidney disease who is presenting to the hospital with nausea, vomiting and diarrhea. The patient says she was feeling fine on Monday. She had a fish sandwich for dinner and then at approximately 2 AM she woke up feeling feverish. She said she was severely cold and had chills. She did not have a thermometer so did not check a temperature. On Monday morning she started vomiting bile. She said that everything she ate or drank would come up. This has been ongoing since Monday. She said she has had generalized weakness since the vomiting started. She has been having a hard time ambulating. She said that because she has not been eating, drinking or feeling well she has missed some of her Victoza injections. She says she started to have diarrhea about 2 days ago. She describes the diarrhea as watery but not bad. She denies any cramps associated with it. She says she has been having about 2 bowel movements a day. She also mentions that her [id number] had the same fish sandwich on Monday night and did not develop any similar symptoms. She mentions recently she had bad bronchitis and was on Cipro for 10 days. The Cipro did not work so she was given steroids. She completed about 3-1/2 days of steroids and she said her bronchitis is currently gone. CBC/BMP: 02/01/17 0746 02/01/17 7672 Significant Findings Laboratory Tests Test 01/31/17 13:15 02/01/17 07:46 02/01/17 17:42 Red Blood Count 3.43 MIL/MM3 (4.00-5.30) 3.52 MIL/MM3 (4.00-5.30) Hemoglobin 10.2 GM/DL (11.6-15.3) 10.6 GM/DL (11.6-15.3) Hematocrit 29.4 % (35.0-46.0) 30.1 % (35.0-46.0) Neutrophils (%) (Auto) 73.0 % (16.0-70.0) Neutrophils # (Auto) 7.8 TH/MM3 (1.8-7.7) Creatinine 1.30 MG/DL (0.50-1.00) 1.15 MG/DL (0.50-1.00) 1.13 MG/DL (0.50-1.00) Random Glucose 274 MG/DL (74-106) 139 MG/DL (74-106) 188 MG/DL (74-106) Calcium Level 7.9 MG/DL (8.5-10.1) 8.3 MG/DL (8.5-10.1) 8.2 MG/DL (8.5-10.1) Chloride Level 110 MEQ/L (98-107) Estimat Glomerular Filtration Rate 41 ML/MIN (>89) 47 ML/MIN (>89) 48 ML/MIN (>89) Monocytes (%) (Auto) 8.7 % (0.0-8.0) Potassium Level 3.3 MEQ/L (3.5-5.1) Phosphorus Level 2.2 MG/DL (2.5-4.9) Magnesium Level 1.4 MG/DL (1.5-2.5) Imaging Last Impressions Chest X-Ray 01/31/17 0000 Signed Impressions: Service Date/Time: Tuesday, January 31, 2017 15:57 - CONCLUSION: Pulmonary venous congestion. Otherwise, no significant change compared to the prior study. Ezequiel Quiñones MD Renal Ultrasound 01/27/17 0000 Signed Impressions: Service Date/Time: Friday, January 27, 2017 14:09 - CONCLUSION: 1. No evidence of obstruction. Trace perinephric fluid bilaterally Pro Bishop MD PE at Discharge GENERAL: This is a well-nourished, well-developed patient, in no apparent distress. SKIN: No rashes, warm and dry HEAD: Atraumatic. Normocephalic. EYES: Pupils equal round and reactive. Extraocular motions intact. No scleral icterus. ENT: Nose without bleeding, or drainage, Airway patent. NECK: Trachea midline. Supple CARDIOVASCULAR: Regular rate and rhythm without murmurs, gallops, or rubs. RESPIRATORY: Fair air entry bilaterally. No wheezes, rales, or rhonchi. GASTROINTESTINAL: Abdomen soft, non-tender, nondistended. Positive bowel sounds MUSCULOSKELETAL: Extremities without clubbing, cyanosis, or edema. Pedal pulses appreciated NEUROLOGICAL: Awake and alert. Moves all extremity. Normal speech.no focal neurological deficit Hospital Course Patient presented with sepsis secondary to UTI, Urine and blood cultures positive for Escherichia coli. ID was consulted and followed patient through hospitalization. Had fevers throughout stay. Rocephin and vancomycin while hospitalized. Discharged on Augmentin 500 mg PO TID x 10 days. Diabetes mellitus was poorly controlled. Hbg a1C ordered showing 7.6. Patient placed on ACCU checks and sliding scale, also placed on long acting insulin. Despite insulin therapy patient blood sugars were still poorly controlled. Will start on insulin and dc home regimen for the outpatient setting due to poor control. para educator was consulted to educate patient on newly prescribed insulin. Patient understanding and agreeable to plan. Understanding of importance regarding checking blood sugars frequently and being aware of signs of hypoglycemia. Encouraged to follow up with PCP to continue monitoring and adjustment. Patient did have acute kidney injury superimposed on chronic kidney disease stage III, creatinine improved with hydration. Pt Condition on Discharge: Good Discharge Disposition: Discharge Home Discharge Time: > 30 minutes Discharge Instructions DIET: Follow Instructions for: Diabetic Diet Speech Therapy-Diet Recommends: Regular Activities you can perform: Regular-No Restrictions Follow up Referrals: PCP Follow-up - 1 Week New Medications: Accu-Chek Fastclix Lancet (Accu-Chek Fastclix Lancet) 1 Mis Mis EA .ROUTE DIRECTED for Blood Sugar Management, #1 0 Refills Amoxicillin-Clavulanate (Augmentin) 500-125 mg Tab 500 MG PO Q8H for Infection for 10 Days, #30 TAB 0 Refills Blood Glucose Monitoring W/Device (Blood Glucose Monitoring W/Device) 1 Kit Kit KIT .ROUTE DIRECTED for Blood Sugar Management, #1 0 Refills Carefine Pen [place] 31G X 6 mm (Carefine Pen [place] 31G X 6 mm) 31 Gauge X 1/4 " Mis EA .ROUTE DIRECTED for Blood Sugar Management, #1 Insulin Aspart Inj (Novolog Inj) 1,000 Unit/10 Ml Vial 2 UNITS SQ TIDAC for Blood Sugar Management, #1 INJECTION 0 Refills Cholecalciferol (Vitamin D3) 5,000 Unit Cap 5000 UNITS PO DAILY for supplementation for 30 Days, #30 CAP Insulin Aspart Inj (Novolog Inj) 100 Unit/Ml Inj 1 UNITS SQ ACHS SLIDING SCALE for dm for 30 Days, INJECTION Insulin Detemir Inj (Levemir Inj) 1,000 unit/ 10 ML Vial 20 UNITS SQ HS for diabetes for 30 Days, INJECTION Do not mix with any other Insulin. [Calcium Carbonate Chew] () 500 MG CHEW 500 MG CHEW Q12HR for supplementation for 30 Days, #60 Continued Medications: Telmisartan (Micardis) 40 Mg Tab 40 MG PO DAILY for Blood Pressure Management, #30 TAB 0 Refills Discontinued Medications: Glipizide (Glipizide) 5 Mg Tab 5 MG PO DAILY for Blood Sugar Management, #30 TAB 0 Refills Take 30 minutes before a meal Liraglutide Inj (Victoza Inj) 18 Mg/3 Ml Pen 1.2 MG SQ DAILY, #1 PEN 0 Refills Methylprednisolone Dosepak (Medrol Dosepak) 4 Mg Dspk 4 MG PO DIRECTED, #1 DSPK 0 Refills Per Pharmacist direction Nina Snow Feb 02, 2017 12:25
[2017-02-02] MEDS ORDERED: FLUCONAZOLE 100 MG TAB PO ONE (13:30)
[2017-02-02] MEDS ORDERED: MAGNESIUM SULFATE 1 GM PREMIX 100 ML IV SCH (13:30)
[2017-02-02] MEDS ORDERED: LOSARTAN 50 MG TAB PO SCH (13:45)
[2017-02-02] MEDS ORDERED: PILL SPLITTER OTHER PRN (13:45)
[2017-02-02] MEDS ORDERED: FLUC150T PO (17:07)
== END 2017-02-02 15:57 | disposition home or self-care (01) | DRG 871 ==
LOC: NEPE 16:42 → NEDA 01-26 02:11 → OBSVTOIN 01-26 02:15 → NEPFCDU 01-26 03:50 → N04B 01-27 18:34
PROVIDERS: ADMIT Hospitalist; ATTEND Hospitalist
DX: A41.51 Sepsis due to Escherichia coli [E. coli] (principal); N17.0 Acute kidney failure with tubular necrosis; N39.0 Urinary tract infection, site not specified; Z68.41 Body mass index [BMI] 40.0-44.9, adult; A09 Infectious gastroenteritis and colitis, unspecified; E11.22 Type 2 diabetes mellitus with diabetic chronic kidney disease; N18.3 Chronic kidney disease, stage 3 (moderate); E66.01 Morbid (severe) obesity due to excess calories; E86.0 Dehydration; E11.65 Type 2 diabetes mellitus with hyperglycemia; J06.9 Acute upper respiratory infection, unspecified; B96.20 Unspecified Escherichia coli [E. coli] as the cause of diseases classified elsewhere; I12.9 Hypertensive chronic kidney disease with stage 1 through stage 4 chronic kidney disease, or unspecified chronic kidney disease; R65.20 Severe sepsis without septic shock; E83.51 Hypocalcemia; E83.39 Other disorders of phosphorus metabolism; Z87.442 Personal history of urinary calculi; Z79.4 Long term (current) use of insulin
CPT/HCPCS: 71010; 76775; 76937; 80048; 80053; 80069; 81001; 82306; 82607; 82948; 83036; 83605; 83690; 83735; 84100; 84443; 85025; 85027; 87040; 87077; 87086; 87186; 87205; 87493; 87506; G8987-GP; G8988-GP; J0696; J0744; J1644; J1815; J2405; J2543; J3370; J7030; J7050